=== PATIENT | male | born 1940 | race Caucasian/White ===

== ENCOUNTER 2016-10-29 14:58 | Observation (INO) | payer MEDICARE ==
[2016-10-29] MEDS ORDERED: ASPIRIN 81 MG TABLET, CHEWABLE PO ONE (15:48)
--- NOTE | 2016-10-29 15:51 | ER Document Report ---
ED Medical Screen (RME) - General Chief Complaint: Chest Pain Stated Complaint: CHEST PAIN Time Seen by Provider: 10/29/16 15:27 Mode of Arrival: Ambulatory Information source: Patient Notes: This is a 76-year-old male who presents with chest tightness. He states that the chest pain began at about 11:00 today while he was sitting at the computer at rest. He describes it as a tightness across his anterior chest and into both shoulders. He does have mild shortness of breath. No nausea or vomiting. No diaphoresis. He has taken his antihypertensive medications today but states that he has white coat syndrome and has high blood pressure every time he goes to the doctor. His current pain is 1 out of 10. I have greeted and performed a rapid initial assessment of this patient. A comprehensive ED assessment and evaluation of the patient, analysis of test results and completion of the medical decision making process will be conducted by additional ED providers. TRAVEL OUTSIDE OF THE [place] IN LAST 30 DAYS: No - Related Data Allergies/Adverse Reactions: No Known Allergies Allergy (Verified 10/29/16 15:14) Past Medical History Renal/ Medical History: Denies: Hx Peritoneal Dialysis Physical Exam - Vital signs Vitals: Temp Pulse Resp BP Pulse Ox 97.9 F 78 24 H 185/57 H 96 10/29/16 15:14 10/29/16 15:14 10/29/16 15:14 10/29/16 15:14 10/29/16 15:14 Course - Vital Signs Vital signs: Temp Pulse Resp BP Pulse Ox 97.9 F 78 24 H 185/57 H 96 10/29/16 15:14 10/29/16 15:14 10/29/16 15:14 10/29/16 15:14 10/29/16 15:14
--- NOTE | 2016-10-29 16:56 | ER Document Report ---
ED Cardiac - General Mode of Arrival: Ambulatory Information source: Patient TRAVEL OUTSIDE OF THE [place] IN LAST 30 DAYS: No - HPI Patient complains to provider of: Chest tightness Associated symptoms: Other - See above <LYDIA NICHOLS - Last Filed: 10/29/16 17:24> <MARC CHAUDHARI - Last Filed: 10/29/16 20:01> - General Chief Complaint: Chest Pain Stated Complaint: Chest Tightness Time Seen by Provider: 10/29/16 15:27 Notes: Patient is a 76 year old male, with a past medical history including triple bypass and vascular surgeries, hypertension, and diabetes, who presents to the emergency department complaining of chest tightness. Patient states the tightness started around midday and was accompanied by shortness of breath, the symptoms worsened throughout the day and was not exacerbated by activity or relieved by resting. Patient states he has had shortness of breath for the past couple of weeks but today's was different and he describes it as "shallow breathing". Patient is on Plavix and 2 baby Asa which he has taken today. Patient also complains of a headache in the back of his head. Patient denies abdominal pain, back pain, and anxiety. Patient states the chest tightness and shortness of breath are gone now. (LYDIA NICHOLS) - Related Data Allergies/Adverse Reactions: No Known Allergies Allergy (Verified 10/29/16 15:14) Past Medical History - General Information source: Patient - Social History Smoking Status: Unknown if Ever Smoked Family History: Reviewed & Not Pertinent Patient has suicidal ideation: No Patient has homicidal ideation: No - Past Medical History Cardiac Medical History: Reports: Hx Hypercholesterolemia, Hx Hypertension Endocrine Medical History: Reports: Hx Diabetes Mellitus Type 2 Past Surgical History: Reports: Hx Cardiac Catheterization <LYDIA NICHOLS - Last Filed: 10/29/16 17:24> Review of Systems - Review of Systems Constitutional: No symptoms reported EENT: No symptoms reported Cardiovascular: See HPI, Chest pain Respiratory: See HPI, Short of breath Gastrointestinal: denies: Abdominal pain Genitourinary: No symptoms reported Male Genitourinary: No symptoms reported Musculoskeletal: denies: Back pain Skin: No symptoms reported Hematologic/Lymphatic: No symptoms reported Neurological/Psychological: See HPI, Headaches -: Yes All other systems reviewed and negative <LYDIA NICHOLS - Last Filed: 10/29/16 17:24> Physical Exam - Vital signs Interpretation: Hypertensive - General General appearance: Appears well, Alert - HEENT Head: Normocephalic, Atraumatic Eyes: Normal Pupils: PERRL - Respiratory Respiratory status: No respiratory distress Chest status: Nontender Breath sounds: Normal Chest palpation: Normal - Cardiovascular Rhythm: Regular Heart sounds: Normal auscultation Murmur: No - Abdominal Inspection: Normal Distension: No distension Bowel sounds: Normal Tenderness: Nontender Organomegaly: No organomegaly - Back Back: Normal, Nontender - Extremities General upper extremity: Normal inspection, Nontender, Normal color, Normal ROM , Normal temperature General lower extremity: Normal inspection, Nontender, Normal color, Normal ROM , Normal temperature, Normal weight bearing. No: Radha's sign - Neurological Neuro grossly intact: Yes Cognition: Normal Orientation: AAOx4 [place] Coma Scale Eye Opening: Spontaneous [place] Coma Scale Verbal: Oriented [place] Coma Scale Motor: Obeys Commands Dalia Coma Scale Total: 15 Speech: Normal Motor strength normal: LUE, RUE, LLE, RLE Sensory: Normal - Psychological Associated symptoms: Normal affect, Normal mood - Skin Skin Temperature: Warm Skin Moisture: Dry Skin Color: Normal <MARC CHAUDHARI - Last Filed: 10/29/16 20:01> - Vital signs Vitals: Temp Pulse Resp BP Pulse Ox 97.9 F 78 24 H 185/57 H 96 10/29/16 15:14 10/29/16 15:14 10/29/16 15:14 10/29/16 15:14 10/29/16 15:14 Course - Laboratory Result Diagrams: 10/29/16 16:40 10/29/16 16:40 <LYDIA NICHOLS - Last Filed: 10/29/16 17:24> - Laboratory Result Diagrams: 10/29/16 16:40 10/29/16 16:40 - Diagnostic Test Radiology reviewed: Reports reviewed - EKG Interpretation by [place] EKG shows normal: Sinus rhythm Rate: Normal Rhythm: NSR <MARC CHAUDHARI - Last Filed: 10/29/16 20:01> - Re-evaluation Re-evalutation: 10/29/16 18:00 This is a 76-year-old male who comes in with chest pain and difficulty breathing. Patient states that nothing makes it better or worse. Patient has a history of coronary artery disease. Taken aspirin today. No acute findings on chest x-ray or EKG. No acute findings with blood work. Patient will be kept due to his history and symptoms today. Patient understands and agrees with this plan. Stable time of admission. Discussed with Dr. Stephenson who recommends Lovenox. (MARC CHAUDHARI) - Vital Signs Vital signs: Temp Pulse Resp BP Pulse Ox 97.9 F 78 24 H 185/57 H 98 10/29/16 15:14 10/29/16 15:14 10/29/16 15:14 10/29/16 15:14 10/29/16 17:00 - Laboratory Laboratory results interpreted by me: 10/29/16 10/29/16 16:40 16:40 WBC 13.6 H RDW 14.1 H Seg Neutrophils % 79.8 H Lymphocytes % 8.1 L Absolute Neutrophils 10.8 H BUN 28 H Creatinine 1.43 H Est GFR ( Amer) 58 L Est GFR (Non-Af Amer) 48 L Glucose 155 H Alkaline Phosphatase 194 H Discharge <LYDIA NICHOLS - Last Filed: 10/29/16 17:24> - Discharge Admitting Provider: [facility] Admitted: Telemetry <MARC CHAUDHARI - Last Filed: 10/29/16 20:01> - Discharge Clinical Impression: Chest pain Qualifiers: Chest pain type: unspecified Qualified Code(s): R07.9 - Chest pain, unspecified Condition: Stable Disposition: ADMITTED INPATIENT Scribe Attestation: 10/29/16 20:01 I personally performed the services described in the documentation, reviewed and edited the documentation which was dictated to the scribe in my presence, and it accurately records my words and actions. (MARC CHAUDHARI)
[2016-10-29 16:59] LABS: ABSOLUTE BASOPHILS # (AUTO) 0.1 10^3/uL (0.0-0.2); ABSOLUTE EOSINOPHILS # (AUTO) 0.3 10^3/uL (0.0-0.6); ABSOLUTE LYMPHOCYTES (AUTO) 1.1 10^3/uL (0.5-4.7); ABSOLUTE MONOCYTES (AUTO) 1.3 10^3/uL (0.1-1.4); ABSOLUTE NEUT (AUTO) 10.8 10^3/uL (1.7-8.2); BASOPHILS % (AUTO) 0.8 % (0-2); EOSINOPHILS % (AUTO) 1.9 % (0-6); HEMOGLOBIN 15.1 g/dL (13.5-17.0); HGB HCT DIFFERENCE -0.7; LYMPHOCYTES % (AUTO) 8.1 % (13-45); MEAN CORPUSCULAR HEMOGLOBIN 30.2 pg (27.0-33.4); MEAN CORPUSCULAR HGB CONC 32.8 g/dL (32.0-36.0); MEAN CORPUSCULAR VOLUME 92 fl (80-97); MONOCYTES % (AUTO) 9.4 % (3-13); RED BLOOD COUNT 4.98 10^6/uL (4.35-5.55); RED CELL DISTRIBUTION WIDTH 14.1 % (11.5-14.0); SEGMENTED NEUTROPHILS % (AUTO) 79.8 % (42-78); WHITE BLOOD COUNT 13.6 10^3/uL (4.0-10.5)
--- NOTE | 2016-10-29 16:59 | RADIOLOGY REPORT (SQ) ---
EXAM DESCRIPTION: CHEST SINGLE VIEW COMPLETED DATE/TIME: 10/29/2016 4:33 pm REASON FOR STUDY: chest pain COMPARISON: None. EXAM PARAMETERS: NUMBER OF VIEWS: One view. TECHNIQUE: Single frontal radiographic view of the chest acquired. RADIATION DOSE: NA LIMITATIONS: None. FINDINGS: LUNGS AND PLEURA: No opacities, masses or pneumothorax. No pleural effusion. MEDIASTINUM AND HILAR STRUCTURES: No masses. Contour normal. HEART AND VASCULAR STRUCTURES: Mild cardiomegaly. The central vasculature appears normal. BONES: No acute findings. HARDWARE: Median sternotomy wires and mediastinal surgical clips. OTHER: No other significant finding. IMPRESSION: NO ACUTE RADIOGRAPHIC FINDING IN THE CHEST. TECHNICAL DOCUMENTATION: JOB ID: [id number]
[2016-10-29 17:05] LABS: PROTHROMBIN TIME 12.6 SEC (11.4-15.4)
[2016-10-29 17:16] LABS: ALANINE AMINOTRANSFERASE 47 U/L (21-72); ALBUMIN 4.1 g/dL (3.5-5.0); ALKALINE PHOSPHATASE 194 U/L (38-126); ANION GAP 14 (5-19); ASPARTATE AMINO TRANSFERASE 39 U/L (17-59); BILIRUBIN,DIRECT 0.4 mg/dL (0.0-0.4); BILIRUBIN,TOTAL 0.6 mg/dL (0.2-1.3); BLOOD UREA NITROGEN 28 mg/dL (7-20); CALCIUM 9.3 mg/dL (8.4-10.2); CARBON DIOXIDE 23 mmol/L (22-30); CHLORIDE 104 mmol/L (98-107); CREATINE KINASE 156 U/L (55-170); CREATININE RESULT 1.43 mg/dL (0.52-1.25); GLUCOSE 155 mg/dL (75-110); POTASSIUM 4.4 mmol/L (3.6-5.0); SODIUM 140.8 mmol/L (137-145); TOTAL PROTEIN 7.1 g/dL (6.3-8.2)
[2016-10-29 17:28] LABS: CREATINE KINASE MB 3.28 ng/mL (<4.55); TROPONIN I 0.022 ng/mL
[2016-10-29] MEDS ORDERED: ENOXAPARIN SODIUM INJ 150 MG/1 ML DISP.SYRIN SUBCUT SCH (18:00)
[2016-10-29] MEDS: ENOXAPARIN SODIUM INJ 150 MG/1 ML DISP.SYRIN SUBCUT SCH (18:02)
[2016-10-29] MEDS ORDERED: NITROGLYCERIN 0.4 MG/TAB 25 TAB/BOTTLE SL PRN (20:03)
[2016-10-29] MEDS ORDERED: DEXTROSE 40% GEL 15 GM TUBE PO PRN ×2 (20:09)
[2016-10-29] MEDS ORDERED: DEXTROSE 50%-WATER 25 GM/50 ML DISP.SYRIN IV PRN ×2 (20:09)
[2016-10-29] MEDS ORDERED: GLUCAGON,HUMAN RECOMB 1 MG INJ IM PRN (20:09)
[2016-10-29] MEDS ORDERED: METOPROLOL SUCCINATE 50 MG TAB.SR.24H PO SCH (20:15)
[2016-10-29] MEDS: ATORVASTATIN CALCIUM 40 MG TABLET PO SCH (21:24)
[2016-10-29] MEDS: FAMOTIDINE 20 MG TABLET PO SCH (21:24)
[2016-10-30] MEDS ORDERED: ENOXAPARIN SODIUM INJ 150 MG/1 ML DISP.SYRIN SUBCUT ONE (06:18)
[2016-10-30] MEDS: ENOXAPARIN SODIUM INJ 150 MG/1 ML DISP.SYRIN SUBCUT SCH ×2 (06:22→17:34)
--- NOTE | 2016-10-30 07:44 | PDOC H&P ---
History of Present Illness Admission Date/PCP: 10/29/16 20:03 ZAHRAA WARREN MD Patient complains of: chest pain History of Present Illness: SHANTELLE CURTIS is a 76 year old male diabetic post 2007 cabg with new upper chest pressure from 10am to 2pm. It was pleuritic and radiated to shoulders. It was no associated with effort or meals. Past Medical History Cardiac Medical History: Reports: Coronary Artery Disease, Hyperlipidema, Hypertension, Peripheral Vascular Disease Denies: Congestive Heart Failure Pulmonary Medical History: Denies: Asthma, Bronchitis, Chronic Obstructive Pulmonary Disease (COPD), Pneumonia, Tuberculosis EENT Medical History: Reports: Eyes - retinopathy macular edema Neurological Medical History: Reports: None Endocrine Medical History: Reports: Diabetes Mellitus Type 2 Renal/ Medical History: Reports: Chronic Kidney Disease Malignancy Medical History: Reports: None GI Medical History: Reports: Gastroesophageal Reflux Disease Denies: Cirrhosis Musculoskeltal Medical History: Reports: Arthritis Skin Medical History: Reports: None Psychiatric Medical History: Denies: Bipolar Disorder, Depression Traumatic Medical History: Reports: None Hematology: Reports: Anemia - 2014 iron low. Scope negative Denies: Bleeding Tendencies Infectious Medical History: Reports: None Past Surgical History Past Surgical History: Reports: Cardiac Catheterization, Cholecystectomy, Coronary Artery Bypass Graft, Other - 2014 graft L popliteal Social History Information Source: Dr. Shaw Smoking Status: Former Smoker Number of Years Smokin Last Time Smoked: 1996 Frequency of Alcohol Use: None Hx Recreational Drug Use: No Hx Prescription Drug Abuse: No - Advance Directive Resuscitation Status: Full Code Family History Family History: CAD, DM Parental Family History Reviewed: Yes Children Family History Reviewed: Yes Sibling(s) Family History Reviewed.: Yes Medication/Allergy Home Medications: Amlodipine Besylate [Norvasc 10 mg Tablet] 10 mg PO DAILY 10/30/16 Aspirin [Adult Low Dose Aspirin EC] 81 mg PO DAILY 10/30/16 Atorvastatin Calcium [Lipitor 40 mg Tablet] 40 mg PO QHS 10/30/16 Clopidogrel Bisulfate [Clopidogrel] 75 mg PO DAILY 10/30/16 Furosemide [Lasix] 40 mg PO DAILY 10/30/16 Insulin NPL/Insulin Lispro [Humalog Mix 75-25 Vial] 100 unit SQ BID 10/30/16 Labetalol HCl [Trandate] 300 mg PO BID 10/30/16 Lisinopril [Zestril] 20 mg PO DAILY 10/30/16 Ranitidine HCl [Zantac 150 mg Tablet] 150 mg PO BID 10/30/16 Allergies/Adverse Reactions: No Known Allergies Allergy (Verified 10/29/16 15:14) Review of Systems Constitutional: PRESENT: headache(s). ABSENT: fever(s), weight loss Nose, Mouth, and Throat: ABSENT: sore throat Cardiovascular: PRESENT: chest pain, dyspnea on exertion. ABSENT: orthropnea Respiratory: ABSENT: cough Gastrointestinal: ABSENT: abdominal pain, constipation, diarrhea, hematochezia, melena, vomiting Genitourinary: ABSENT: difficulty urinating, dysuria, hematuria Physical Exam Vital Signs: Temp Pulse Resp BP Pulse Ox 98.2 F 70 17 162/56 H 99 10/30/16 03:52 10/30/16 03:52 10/30/16 03:52 10/30/16 03:52 10/30/16 03:52 Intake & Output 10/28/16 10/29/16 10/30/16 07:59 07:59 07:59 Weight 318 lb 9.087 oz General appearance: PRESENT: no acute distress Neck exam: ABSENT: lymphadenopathy, tenderness, thyromegaly, tracheal deviation Respiratory exam: PRESENT: clear to auscultation monserrat Cardiovascular exam: ABSENT: diastolic murmur, irregular rhythm, systolic murmur GI/Abdominal exam: ABSENT: mass, organolmegaly, tenderness Extremities exam: PRESENT: pedal edema - trace Neurological exam: PRESENT: oriented to situation Psychiatric exam: PRESENT: appropriate affect Results Laboratory Results: 10/29/16 10/30/16 20:20 02:06 Troponin I 0.024 0.029 Abnormal - 24 hr 10/29/16 10/29/16 10/29/16 16:40 16:40 21:23 WBC 13.6 H RDW 14.1 H Seg Neutrophils % 79.8 H Lymphocytes % 8.1 L Absolute Neutrophils 10.8 H BUN 28 H Creatinine 1.43 H Est GFR ( Amer) 58 L Est GFR (Non-Af Amer) 48 L Glucose 155 H POC Glucose 119 H Alkaline Phosphatase 194 H 10/30/16 06:26 WBC RDW Seg Neutrophils % Lymphocytes % Absolute Neutrophils BUN Creatinine Est GFR ( Amer) Est GFR (Non-Af Amer) Glucose POC Glucose 138 H Alkaline Phosphatase Impressions: Chest X-Ray 10/29/16 15:48 IMPRESSION: NO ACUTE RADIOGRAPHIC FINDING IN THE CHEST. Assessment & Plan - Diagnosis (1) Pleuritic pain Is this a current diagnosis for this admission?: YesPlan: troponin & ekg pending. Continue lovenox. May need outpatient nuc since last one was in 2014. (2) Type 2 diabetes mellitus with diabetic nephropathy Qualifiers: Diabetes mellitus fci insulin use: with fci use Qualified Code(s): E11.21 - Type 2 diabetes mellitus with diabetic nephropathy; Z79.4 - terminal clerk (current) use of insulin Is this a current diagnosis for this admission?: YesPlan: resume mixed insulin
[2016-10-30] MEDS: ASPIRIN 81 MG TABLET, CHEWABLE PO SCH (09:38)
[2016-10-30] MEDS: FAMOTIDINE 20 MG TABLET PO SCH ×2 (09:38→22:00)
[2016-10-30] MEDS: AMLODIPINE BESYLATE 10 MG TABLET PO SCH (09:38)
[2016-10-30] MEDS: FUROSEMIDE 40 MG TABLET PO SCH (09:38)
[2016-10-30] MEDS: LISINOPRIL 10 MG TABLET PO SCH (09:38)
[2016-10-30] MEDS: CLOPIDOGREL BISULFATE 75 MG TABLET PO SCH (09:38)
[2016-10-30] MEDS: LABETALOL HCL 200 MG TABLET PO SCH ×2 (09:39→22:00)
[2016-10-30] MEDS ORDERED: (PENDING PHARMACY ID) (Lisinopril [Zestril] 20 MG) PO SCH (10:00)
[2016-10-30] MEDS ORDERED: (PENDING PHARMACY ID) (Labetalol Hcl [Trandate] 300 MG) PO SCH (10:00)
[2016-10-30] MEDS: INSULIN REG, HUMAN 100 UNIT/ML 3 ML VIAL (PYX) SUBCUT PRN ×2 (18:06→21:59)
[2016-10-30] MEDS: ATORVASTATIN CALCIUM 40 MG TABLET PO SCH (22:00)
[2016-10-31 05:26] LABS: HEMATOCRIT 40.9 % (37.9-51.0); HEMOGLOBIN 13.6 g/dL (13.5-17.0); HGB HCT DIFFERENCE -0.1; MEAN CORPUSCULAR HEMOGLOBIN 30.6 pg (27.0-33.4); MEAN CORPUSCULAR HGB CONC 33.3 g/dL (32.0-36.0); MEAN CORPUSCULAR VOLUME 92 fl (80-97); RED BLOOD COUNT 4.45 10^6/uL (4.35-5.55); WHITE BLOOD COUNT 7.1 10^3/uL (4.0-10.5)
[2016-10-31] MEDS: ENOXAPARIN SODIUM INJ 150 MG/1 ML DISP.SYRIN SUBCUT SCH (05:37)
--- NOTE | 2016-10-31 07:53 | PDOC DISCHARGE SUMMARY ---
General - Admit/Disc Date/PCP Admission Date/Primary Care Provider: 10/29/16 20:03 ZAHRAA WARREN MD Discharge Date: 10/31/16 - Discharge Diagnosis (1) Pleuritic pain Is this a current diagnosis for this admission?: Yes (2) Type 2 diabetes mellitus with diabetic nephropathy Is this a current diagnosis for this admission?: Yes - Additional Information Resuscitation Status: Full Code Discharge Diet: Diabetic Discharge Activity: Activity As Tolerated Home Medications: Amlodipine Besylate [Norvasc 10 mg Tablet] 10 mg PO QHS 10/30/16 Ascorbic Acid [Vitamin C 500 mg Tablet] 500 mg PO DAILY 10/30/16 Aspirin [Adult Low Dose Aspirin EC] 81 mg PO DAILY 10/30/16 Atorvastatin Calcium [Lipitor 40 mg Tablet] 40 mg PO QHS 10/30/16 Clopidogrel Bisulfate [Clopidogrel] 75 mg PO QHS 10/30/16 Fluocinolone/Shower Cap [Fluocinolone 0.01% Scalp Oil] 1 applic TP PRN PRN 10/30 Fluticasone Propionate [Flonase Nasal [place] 50 Mcg/[place] 16 gm] 2 sprays NAREB DAILY 10/30/16 Furosemide [Lasix] 40 mg PO DAILY 10/30/16 Insulin NPH Hum/Reg Insulin Hm [Novolin 70-30 100 Unit/ml Vial] 100 unit SQ BIDACBS 10/30/16 Labetalol HCl [Trandate] 300 mg PO Q12 10/30/16 Lisinopril [Zestril] 20 mg PO DAILY 10/30/16 Ranitidine HCl [Zantac 150 mg Tablet] 150 mg PO DAILY 10/30/16 Hydralazine HCl [Apresoline 50 mg Tablet] 50 mg PO Q12 #60 tablet 10/31/16 Nitroglycerin [Nitrostat 0.4 mg (1/150 Gr) Tabs 25/Bottle] 1 tab SL Q5MP PRN # 30 bottle 10/31/16 History of Present Illness Patient complains of: chest pain History of Present Illness: SHANTELLE CURTIS is a 76 year old male diabetic post 2007 cabg with new upper chest pressure from 10am to 2pm. It was pleuritic and radiated to shoulders. It was no associated with effort or meals. Hospital Course Hospital Course: 4 troponins were normal. Ekgs showed Rbbb & Q waves everwhere. No pain since ER. Hydralazine was added for bp. Physical Exam Vital Signs: Temp Pulse Resp BP Pulse Ox 97.8 F 58 L 18 146/53 H 99 10/31/16 03:44 10/31/16 07:00 10/31/16 03:44 10/31/16 03:44 10/31/16 03:44 Intake & Output 10/29/16 10/30/16 10/31/16 07:59 07:59 07:59 Intake Total 300 1490 Output Total 2 Balance 298 1490 Weight 318 lb 9.087 oz 319 lb 0.142 oz General appearance: PRESENT: no acute distress Cardiovascular exam: ABSENT: diastolic murmur, irregular rhythm, systolic murmur GI/Abdominal exam: ABSENT: mass, organolmegaly, tenderness Extremities exam: ABSENT: pedal edema Neurological exam: PRESENT: oriented to situation Psychiatric exam: PRESENT: appropriate affect Results Laboratory Results: 10/31/16 04:49 10/31/16 04:49 WBC 7.1 RBC 4.45 Hgb 13.6 Hct 40.9 MCV 92 MCH 30.6 MCHC 33.3 RDW 14.0 Plt Count 155 10/29/16 10/30/16 10/30/16 20:20 02:06 08:09 Troponin I 0.024 0.029 0.032 Impressions: Chest X-Ray 10/29/16 15:48 IMPRESSION: NO ACUTE RADIOGRAPHIC FINDING IN THE CHEST. Qualifiers PATEINT BEING DISCHARGED WITH ANY OF THE FOLLOWING DIAGNOSIS?: No Plan Discharge Plan: home. OV 1w Patti. 2w me
[2016-10-31 09:20] VITALS: BP 145/87
[2016-10-31] MEDS: FAMOTIDINE 20 MG TABLET PO SCH (09:35)
[2016-10-31] MEDS: CLOPIDOGREL BISULFATE 75 MG TABLET PO SCH (09:35)
[2016-10-31] MEDS: FUROSEMIDE 40 MG TABLET PO SCH (09:35)
[2016-10-31] MEDS: LABETALOL HCL 200 MG TABLET PO SCH (09:35)
[2016-10-31] MEDS: AMLODIPINE BESYLATE 10 MG TABLET PO SCH (09:35)
[2016-10-31] MEDS: LISINOPRIL 10 MG TABLET PO SCH (09:35)
[2016-10-31] MEDS: ASPIRIN 81 MG TABLET, CHEWABLE PO SCH (09:35)
--- NOTE | 2016-10-31 09:51 | EKG REPORT ---
SEVERITY:- ABNORMAL ECG - SINUS RHYTHM ATRIAL PREMATURE COMPLEX PROBABLE LEFT ATRIAL ABNORMALITY RIGHT BUNDLE BRANCH BLOCK : Confirmed by: Patricia Berkowitz 31-Oct-2016 09:50:29
--- NOTE | 2016-10-31 09:51 | EKG REPORT ---
SEVERITY:- ABNORMAL ECG - SINUS RHYTHM PROBABLE LEFT ATRIAL ABNORMALITY RIGHT BUNDLE BRANCH BLOCK INFERIOR INFARCT, AGE INDETERMINATE LATERAL INFARCT, AGE INDETERMINATE ANTERIOR INFARCT, OLD : Confirmed by: Patricia Berkowitz 31-Oct-2016 09:50:41
[2016-10-31] MEDS ORDERED: HYDRALAZINE HCL 50 MG TABLET PO SCH (10:00)
== END 2016-10-31 10:35 | disposition home or self-care (01) ==
LOC: ER 14:58 → UNDOADMIN 19:13 → EH 19:13 → INTOOBSV 20:03 → EH 20:03 → 4N 22:57 → EH 22:57
PROVIDERS: ADMIT Family Medicine; ATTEND Family Medicine
DX: R07.81 Pleurodynia (principal); E11.21 Type 2 diabetes mellitus with diabetic nephropathy; I12.9 Hypertensive chronic kidney disease with stage 1 through stage 4 chronic kidney disease, or unspecified chronic kidney disease; E11.22 Type 2 diabetes mellitus with diabetic chronic kidney disease; N18.9 Chronic kidney disease, unspecified; R51 Headache; I45.10 Unspecified right bundle-branch block; I25.10 Atherosclerotic heart disease of native coronary artery without angina pectoris; K21.9 Gastro-esophageal reflux disease without esophagitis; I73.9 Peripheral vascular disease, unspecified; R60.9 Edema, unspecified; Z79.82 Long term (current) use of aspirin; Z79.4 Long term (current) use of insulin; Z79.899 Other long term (current) drug therapy; Z79.02 Long term (current) use of antithrombotics/antiplatelets; Z95.1 Presence of aortocoronary bypass graft; Z90.49 Acquired absence of other specified parts of digestive tract; Z95.828 Presence of other vascular implants and grafts; Z82.49 Family history of ischemic heart disease and other diseases of the circulatory system; Z87.891 Personal history of nicotine dependence
CPT/HCPCS: 93005 ×2; 99285; 96372; 36415 ×3; 82553; 82962 ×3; 82550; 85025; 85027; 85610; 80053; 84484 ×2; 71010; 93010 ×2; G0378 ×4; A9270 ×19; J3490 ×6; J1815

== ENCOUNTER 2017-12-25 10:36 | Inpatient (IN) | payer MEDICARE ==
[2017-12-25] MEDS ORDERED: ASPIRIN 81 MG TABLET, CHEWABLE PO ONE (10:50)
[2017-12-25 11:18] LABS: ABSOLUTE BASOPHILS # (AUTO) 0.1 10^3/uL (0.0-0.2); ABSOLUTE EOSINOPHILS # (AUTO) 0.3 10^3/uL (0.0-0.6); ABSOLUTE LYMPHOCYTES (AUTO) 0.9 10^3/uL (0.5-4.7); ABSOLUTE MONOCYTES (AUTO) 0.9 10^3/uL (0.1-1.4); BASOPHILS % (AUTO) 1.3 % (0-2); HEMATOCRIT 39.5 % (37.9-51.0); HEMOGLOBIN 13.2 g/dL (13.5-17.0); LYMPHOCYTES % (AUTO) 10.3 % (13-45); MEAN CORPUSCULAR HEMOGLOBIN 30.6 pg (27.0-33.4); MEAN CORPUSCULAR HGB CONC 33.5 g/dL (32.0-36.0); MEAN CORPUSCULAR VOLUME 91 fl (80-97); MONOCYTES % (AUTO) 9.6 % (3-13); PLATELET COUNT 177 10^3/uL (150-450); RED BLOOD COUNT 4.32 10^6/uL (4.35-5.55); RED CELL DISTRIBUTION WIDTH 14.5 % (11.5-14.0); SEGMENTED NEUTROPHILS % (AUTO) 75.8 % (42-78); TOTAL CELLS COUNTED % (AUTO) 100 %; WHITE BLOOD COUNT 9.2 10^3/uL (4.0-10.5)
--- NOTE | 2017-12-25 11:23 | ER Document Report ---
ED Medical Screen (RME) - General Chief Complaint: Shortness Of Breath Stated Complaint: SHORTNESS OF BREATH Time Seen by Provider: 12/25/17 11:22 Notes: 77 years old male with a history of coronary artery bypass surgery in 2012, with a history of CHF, presents today with gradual weight gain of about 20 pounds within the last few weeks, with shortness of breath on minimal exertion. Last night had orthopnea could not lay down flat has to sleep in the couch. Therefore present to the ED. He is on Lasix. Right lower lobe inspiratory rales TRAVEL OUTSIDE OF THE [place] IN LAST 30 DAYS: No - Related Data Allergies/Adverse Reactions: No Known Allergies Allergy (Verified 12/25/17 10:37) Past Medical History - Social History Chew tobacco use (# tins/day): No Frequency of alcohol use: None Drug Abuse: None - Past Medical History Cardiac Medical History: Reports: Hx Coronary Artery Disease, Hx Hypercholesterolemia, Hx Hypertension, Hx Peripheral Vascular Disease Denies: Hx Congestive Heart Failure, Hx Heart Attack Pulmonary Medical History: Denies: Hx Asthma, Hx Bronchitis, Hx COPD, Hx Pneumonia, Hx Tuberculosis Neurological Medical History: Denies: Hx Seizures Endocrine Medical History: Reports: Hx Diabetes Mellitus Type 2 Renal/ Medical History: Reports: Hx Kidney Stones. Denies: Hx Benign Prostatic Hyperplasia, Hx End Stage Renal Disease, Hx Peritoneal Dialysis GI Medical History: Reports: Hx Gastroesophageal Reflux Disease. Denies: Hx Cirrhosis, Hx Ulcer Musculoskeltal Medical History: Reports Hx Arthritis, Denies Hx Multiple Sclerosis Psychiatric Medical History: Denies: Hx Bipolar Disorder, Hx Depression, Hx Schizophrenia Past Surgical History: Reports: Hx Cardiac Catheterization, Hx Cholecystectomy, Hx Coronary Artery Bypass Graft, Other - 2015 graft L popliteal Physical Exam - Vital signs Vitals: Temp Pulse Resp BP Pulse Ox 97.8 F 73 22 H 155/46 H 96 12/25/17 10:41 12/25/17 10:41 12/25/17 10:41 12/25/17 10:41 12/25/17 10:41 Course - Vital Signs Vital signs: Temp Pulse Resp BP Pulse Ox 97.8 F 73 22 H 155/46 H 96 12/25/17 10:41 12/25/17 10:41 12/25/17 10:41 12/25/17 10:41 12/25/17 10:41 - Laboratory Result Diagrams: 12/25/17 11:10 12/25/17 11:10 Doctor's Discharge - Discharge Referrals: ZAHRAA WARREN MD [Primary Care Provider] - Follow up as needed
[2017-12-25 12:04] LABS: ALANINE AMINOTRANSFERASE 33 U/L (21-72); ALBUMIN 3.3 g/dL (3.5-5.0); ALKALINE PHOSPHATASE 139 U/L (38-126); ANION GAP 11 (5-19); ASPARTATE AMINO TRANSFERASE 20 U/L (17-59); BILIRUBIN,DIRECT 0.3 mg/dL (0.0-0.4); BILIRUBIN,TOTAL 0.6 mg/dL (0.2-1.3); BLOOD UREA NITROGEN 24 mg/dL (7-20); CALCIUM 8.9 mg/dL (8.4-10.2); CARBON DIOXIDE 24 mmol/L (22-30); CHLORIDE 111 mmol/L (98-107); CREATINE KINASE 93 U/L (55-170); GLUCOSE 57 mg/dL (75-110); POTASSIUM 4.3 mmol/L (3.6-5.0); SODIUM 145.6 mmol/L (137-145)
[2017-12-25 12:15] LABS: CREATINE KINASE MB 2.48 ng/mL (<4.55); TROPONIN I 0.033 ng/mL
--- NOTE | 2017-12-25 12:21 | RADIOLOGY REPORT (SQ) ---
EXAM DESCRIPTION: CHEST SINGLE VIEW COMPLETED DATE/TIME: 12/25/2017 12:06 pm REASON FOR STUDY: shortness of breath COMPARISON: October 2016 EXAM PARAMETERS: NUMBER OF VIEWS: One view. TECHNIQUE: Single frontal radiographic view of the chest acquired. RADIATION DOSE: NA LIMITATIONS: None. FINDINGS: LUNGS AND PLEURA: Patchy bilateral airspace densities are identified right greater than le ft which could represent pulmonary edema or patchy pneumonic infiltrates. There is some minimal blun ting of the right costophrenic angle which I cannot exclude is a small right pleural effusion MEDIASTINUM AND HILAR STRUCTURES: No masses. Contour normal. HEART AND VASCULAR STRUCTURES: Cardiac silhouette remains enlarged. There is mild pulmonary vascular congestion BONES: No acute findings. HARDWARE: Patient is status post median sternotomy. OTHER: No other significant finding. IMPRESSION: Patchy bilateral airspace densities as noted above which could represent pulmonary edema or pneumonic infiltrates. I cannot exclude a tiny right pleural effusion. Other findings as noted above TECHNICAL DOCUMENTATION: JOB ID: [id number] [employer]- All Rights Reserved Reading location - IP/workstation name: [email or web address]
--- NOTE | 2017-12-25 14:28 | ER Document Report ---
ED General - General Chief Complaint: Shortness Of Breath Stated Complaint: SHORTNESS OF BREATH Time Seen by Provider: 12/25/17 11:22 Notes: Chief complaint: Shortness of breath History of complain:( obtained from----patient)77 years old male with a history of coronary artery bypass surgery in 2012, with a history of CHF, presents today with gradual weight gain of about 20 pounds within the last few weeks, with shortness of breath on minimal exertion. Last night had orthopnea could not lay down flat has to sleep in the couch. Therefore present to the ED. He is on Lasix. Onset: Gradual last 1 week Duration: 1 week Severity: Moderate [place] dull Context: As above Exacerbating factor and relieving factors: REVIEW OF SYSTEMS: CONSTITUTIONAL : Denies fever, chills, or sweats. Denies recent illness. EENT: Denies eye, ear, throat, or mouth pain or symptoms. Denies nasal or sinus congestion or discharge. Denies throat, tongue, or mouth swelling or difficulty swallowing. CARDIOVASCULAR: Denies chest pain. Denies palpitations or racing or irregular heart beat. Denies ankle edema. RESPIRATORY: Denies cough, cold, or chest congestion. Denies shortness of breath, difficulty breathing, or wheezing. GASTROINTESTINAL: Denies distention. Denies nausea, vomiting, or diarrhea. Denies blood in vomitus, stools, or per rectum. Denies black, tarry stools. Denies constipation. GENITOURINARY: Denies difficulty urinating, painful urination, burning, frequency, blood in urine, or discharge. FEMALE GENITOURINARY: Denies vaginal bleeding, heavy or abnormal periods, irregular periods. Denies vaginal discharge or odor. MUSCULOSKELETAL: Denies back or neck pain or stiffness. Denies joint pain or swelling. SKIN: Denies rash, lesions or sores. HEMATOLOGIC : Denies easy bruising or bleeding. LYMPHATIC: Denies swollen, enlarged glands. NEUROLOGICAL: Denies confusion or altered mental status. Denies passing out or loss of consciousness. Denies dizziness or lightheadedness. Denies headache. Denies weakness or paralysis or loss of use of either side. Denies problems with gait or speech. Denies sensory loss, numbness, or tingling. Denies seizures. PSYCHIATRIC: Denies anxiety or stress. Denies depression, suicidal ideation, or homicidal ideation. ALL OTHER SYSTEMS REVIEWED AND NEGATIVE. PHYSICAL EXAMINATION: GENERAL: Well-appearing, well-nourished and in mild acute distress. HEAD: Atraumatic, normocephalic. EYES: Pupils equal round and reactive to light, extraocular movements intact, conjunctiva are normal. ENT: Nares patent, oropharynx clear without exudates. Moist mucous membranes. NECK: Normal range of motion, supple without lymphadenopathy LUNGS: Breath sounds clear to auscultation bilaterally and equal. Inspiratory rales over the right side of the lung field lower lung field or rhonchi. HEART: Regular rate and rhythm without murmurs ABDOMEN: Soft, nontender, nondistended abdomen. No guarding, no rebound. No masses appreciated. Examination of genitals-deferred Musculoskeletal: Normal range of motion, no pitting or edema. No cyanosis. NEUROLOGICAL: Cranial nerves grossly intact. Normal speech, normal gait. Normal sensory, motor exams PSYCH: Normal mood, normal affect. SKIN: Warm, Dry, normal turgor, no rashes or lesions noted. Dictation was performed using [employer] voice recognition software TRAVEL OUTSIDE OF THE [place] IN LAST 30 DAYS: No - HPI Notes: Dictated - Related Data Allergies/Adverse Reactions: No Known Allergies Allergy (Verified 12/25/17 10:37) Past Medical History - Social History Smoking Status: Former Smoker Chew tobacco use (# tins/day): No Frequency of alcohol use: None Drug Abuse: None Family History: CAD, DM Patient has suicidal ideation: No Patient has homicidal ideation: No - Past Medical History Cardiac Medical History: Reports: Hx Coronary Artery Disease, Hx Hypercholesterolemia, Hx Hypertension, Hx Peripheral Vascular Disease Denies: Hx Congestive Heart Failure, Hx Heart Attack Pulmonary Medical History: Denies: Hx Asthma, Hx Bronchitis, Hx COPD, Hx Pneumonia, Hx Tuberculosis Neurological Medical History: Denies: Hx Seizures Endocrine Medical History: Reports: Hx Diabetes Mellitus Type 2 Renal/ Medical History: Reports: Hx Kidney Stones. Denies: Hx Benign Prostatic Hyperplasia, Hx End Stage Renal Disease, Hx Peritoneal Dialysis GI Medical History: Reports: Hx Gastroesophageal Reflux Disease. Denies: Hx Cirrhosis, Hx Ulcer Musculoskeletal Medical History: Reports Hx Arthritis, Denies Hx Multiple Sclerosis Psychiatric Medical History: Denies: Hx Bipolar Disorder, Hx Depression, Hx Schizophrenia Past Surgical History: Reports: Hx Cardiac Catheterization, Hx Cholecystectomy, Hx Coronary Artery Bypass Graft, Other - 2015 graft L popliteal - Immunizations Hx Pneumococcal Vaccination: 05/22/16 Review of Systems - Review of Systems Notes: Dictated Physical Exam - Vital signs Vitals: Temp Pulse Resp BP Pulse Ox 97.8 F 73 22 H 155/46 H 96 12/25/17 10:41 12/25/17 10:41 12/25/17 10:41 12/25/17 10:41 12/25/17 10:41 - Notes Notes: Dictated Course - Vital Signs Vital signs: Temp Pulse Resp BP Pulse Ox 97.8 F 73 22 H 155/46 H 96 12/25/17 10:41 12/25/17 10:41 12/25/17 10:41 12/25/17 10:41 12/25/17 10:41 - Laboratory Result Diagrams: 12/25/17 11:10 12/25/17 11:10 Laboratory results interpreted by me: 12/25/17 12/25/17 12/25/17 11:10 11:10 11:10 RBC 4.32 L Hgb 13.2 L RDW 14.5 H Lymphocytes % 10.3 L Sodium 145.6 H Chloride 111 H BUN 24 H Creatinine 1.35 H Est GFR (Non-Af Amer) 51 L Glucose 57 L Alkaline Phosphatase 139 H NT-Pro-B Natriuret Pep 2590 H Total Protein 6.0 L Albumin 3.3 L - Diagnostic Test Radiology reviewed: Reports reviewed - CHF Discharge - Discharge Clinical Impression: Congestive heart failure Qualifiers: Heart failure type: combined systolic and diastolic Heart failure chronicity: acute Qualified Code(s): I50.41 - Acute combined systolic (congestive) and diastolic (congestive) heart failure Condition: Fair Disposition: ADMITTED INPATIENT Admitting Provider: Hospitalist Unit Admitted: Telemetry Referrals: ZAHRAA WARREN MD [Primary Care Provider] - Follow up as needed
[2017-12-25] MEDS ORDERED: DEXTROSE 50%-WATER 25 GM/50 ML DISP.SYRIN IV PRN ×2 (16:50)
[2017-12-25] MEDS ORDERED: GLUCAGON,HUMAN RECOMB 1 MG INJ IM PRN (16:50)
[2017-12-25] MEDS ORDERED: DEXTROSE 40% GEL 15 GM TUBE PO PRN ×2 (16:50)
--- NOTE | 2017-12-25 18:22 | PDOC H&P ---
History of Present Illness Admission Date/PCP: 12/25/17 15:07 ZAHRAA WARREN MD Patient complains of: increased uribe pnd History of Present Illness: SHANTELLE CURTIS is a 77 year old male with 2007 cabg chronic diastolic failure 1w progressive uirbe & pnd. Past Medical History Cardiac Medical History: Reports: Congestive Heart Failure, Coronary Artery Disease, Hyperlipidema, Hypertension, Peripheral Vascular Disease Denies: Myocardial Infarction Pulmonary Medical History: Reports: None Denies: Asthma, Bronchitis, Chronic Obstructive Pulmonary Disease (COPD), Pneumonia, Tuberculosis EENT Medical History: Reports: Nose - rhinitis Neurological Medical History: Reports: None Denies: Seizures Endocrine Medical History: Reports: Diabetes Mellitus Type 2 Renal/ Medical History: Reports: Chronic Kidney Disease Malignancy Medical History: Reports: None GI Medical History: Reports: Gastroesophageal Reflux Disease Denies: Cirrhosis Musculoskeltal Medical History: Reports: Arthritis Skin Medical History: Reports: None Psychiatric Medical History: Reports: None Denies: Bipolar Disorder, Depression Traumatic Medical History: Reports: None Hematology: Reports: Anemia - 2014 iron low. Scope negative Denies: Bleeding Tendencies Infectious Medical History: Reports: None Past Surgical History Past Surgical History: Reports: Cardiac Catheterization, Cholecystectomy, Coronary Artery Bypass Graft - 2006, Other - 2014 graft L popliteal Social History Information Source: Dr. Shaw Smoking Status: Former Smoker Number of Years Smokin Last Time Smoked: 1996 Frequency of Alcohol Use: None Hx Recreational Drug Use: No Drugs: None Hx Prescription Drug Abuse: No - Advance Directive Resuscitation Status: Full Code Family History Family History: CAD, DM, Hypertension Parental Family History Reviewed: Yes Children Family History Reviewed: Yes Sibling(s) Family History Reviewed.: Yes Medication/Allergy Home Medications: Amlodipine Besylate [Norvasc 10 mg Tablet] 10 mg PO QPM 12/25/17 Aspirin [Adult Low Dose Aspirin EC] 81 mg PO QAM 12/25/17 Atorvastatin Calcium [Lipitor 40 mg Tablet] 40 mg PO QAM 12/25/17 Cetirizine HCl [Zyrtec 10 mg Tablet] 10 mg PO QAM 12/25/17 Cholecalciferol (Vitamin D3) [Vitamin D3 1000 Unit Tablet] 1,000 unit PO QPM 11/06 Clopidogrel Bisulfate [Plavix 75 mg Tablet] 75 mg PO QPM 12/25/17 Duloxetine HCl [Cymbalta] 30 mg PO QAM 12/25/17 Famotidine [Pepcid 20 mg Tablet] 20 mg PO QPM 12/25/17 Fluticasone Propionate [Flonase Nasal [place] 50 Mcg/[place] 16 gm] 2 spray NASL QA 12/25/17 Furosemide [Lasix 40 mg Tablet] 40 mg PO QAM 12/25/17 Hum Insulin NPH/Reg Insulin Hm [Novolin 70-30 100 Unit/ml Vial] 100 units SQ BID 12/25/17 Hydralazine HCl [Apresoline 25 mg Tablet] 25 mg PO Q12 12/25/17 Labetalol HCl [Trandate] 300 mg PO BID 12/25/17 Lisinopril [Zestril] 20 mg PO QAM 12/25/17 Ranitidine HCl [Zantac] 300 mg PO QAM 12/25/17 Allergies/Adverse Reactions: No Known Allergies Allergy (Verified 12/25/17 10:37) Review of Systems Constitutional: PRESENT: weight gain - 20#. ABSENT: fever(s), headache(s) Nose, Mouth, and Throat: ABSENT: sore throat Cardiovascular: PRESENT: dyspnea on exertion, edema, orthropnea. ABSENT: chest pain Respiratory: PRESENT: cough, dyspnea. ABSENT: sputum Gastrointestinal: ABSENT: abdominal pain, constipation, diarrhea, hematochezia, vomiting Genitourinary: ABSENT: dysuria, hematuria Integumentary: ABSENT: rash Physical Exam Vital Signs: Temp Pulse Resp BP Pulse Ox 97.8 F 73 22 H 155/46 H 97 12/25/17 10:41 12/25/17 10:41 12/25/17 10:41 12/25/17 10:41 12/25/17 15:55 Eye exam: ABSENT: conjunctival injection, scleral icterus Mouth exam: PRESENT: moist Neck exam: ABSENT: lymphadenopathy, tenderness, thyromegaly, tracheal deviation Respiratory exam: PRESENT: wheezes - mild Cardiovascular exam: PRESENT: +S1, +S2. ABSENT: diastolic murmur, gallop, irregular rhythm, rubs, systolic murmur GI/Abdominal exam: ABSENT: mass, organolmegaly, tenderness Extremities exam: PRESENT: pedal edema - 1+ Neurological exam: PRESENT: oriented to situation Psychiatric exam: PRESENT: appropriate affect Results Laboratory Results: Abnormal - 24 hr 12/25/17 12/25/17 12/25/17 11:10 11:10 11:10 RBC 4.32 L Hgb 13.2 L RDW 14.5 H Lymphocytes % 10.3 L Sodium 145.6 H Chloride 111 H BUN 24 H Creatinine 1.35 H Est GFR (Non-Af Amer) 51 L Glucose 57 L POC Glucose Alkaline Phosphatase 139 H NT-Pro-B Natriuret Pep 2590 H Total Protein 6.0 L Albumin 3.3 L 12/25/17 14:25 RBC Hgb RDW Lymphocytes % Sodium Chloride BUN Creatinine Est GFR (Non-Af Amer) Glucose POC Glucose 49 L Alkaline Phosphatase NT-Pro-B Natriuret Pep Total Protein Albumin Impressions: Chest X-Ray 12/25/17 00:00 IMPRESSION: Patchy bilateral airspace densities as noted above which could represent pulmonary edema or pneumonic infiltrates. I cannot exclude a tiny right pleural effusion. Other findings as noted above Assessment & Plan - Diagnosis (1) Acute on chronic combined systolic and diastolic congestive heart failure Is this a current diagnosis for this admission?: Yes Plan: iv furosemide. Dr Armstrong did echo & nuc 1y ago. 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 transplanted heart: [place] heart Qualified Code(s): I25.10 - Atherosclerotic heart disease of [place] coronary artery without angina pectoris Is this a current diagnosis for this admission?: Yes - Inpatient Certification Based on my medical assessment, after consideration of the patient's comorbidities, presenting symptoms, or acuity I expect that the services needed warrant INPATIENT care.: Yes Medical Necessity: Failure to Improve With Outpatient Therapy, Significant Comorbidiites Make Outpatient Treatment Too Risky, Need Close Monitoring Due to Risk of Patient Decompensation, Need For Continuous Telemetry Monitoring, Risk of Complication if Not Cared For in Hospital
--- NOTE | 2017-12-25 19:57 | PDOC CONSULTATION ---
Consultation Consult Date: 12/25/17 Attending physician:: JENISE ACKERMAN Consult reason:: CHF History of Present Illness Admission Date/PCP: 12/25/17 15:07 ZAHRAA WARREN MD Patient complains of: Shortness of breath and pedal edema History of Present Illness: SHANTELLE CURTIS is a 77 year old male with a history of coronary artery bypass surgery in 2012, with a history of CHF, presents today with gradual weight gain of about 20 pounds within the last few weeks, with shortness of breath on minimal exertion. Last night had orthopnea could not lay down flat has to sleep in the couch. Therefore present to the ED. He is on Lasix. Patient on questioning denied any chest, neck discomfort of any sort. He denied any history of sustained palpitations, syncope, near syncope. Patient denied having any recent fever, chills, prior history of strokes or mini strokes. Patient does give history of difficulty falling asleep and staying asleep. He feels very fatigued and tired at night. Past Medical History Cardiac Medical History: Reports: Congestive Heart Failure, Coronary Artery Disease, Hyperlipidema, Hypertension, Peripheral Vascular Disease Denies: Myocardial Infarction Pulmonary Medical History: Reports: None Denies: Asthma, Bronchitis, Chronic Obstructive Pulmonary Disease (COPD), Pneumonia, Tuberculosis EENT Medical History: Reports: Nose - rhinitis Neurological Medical History: Reports: None Denies: Seizures Endocrine Medical History: Reports: Diabetes Mellitus Type 2 Renal/ Medical History: Reports: Chronic Kidney Disease Denies: End Stage Renal Disease Malignancy Medical History: Reports: None GI Medical History: Reports: Gastroesophageal Reflux Disease Denies: Cirrhosis Musculoskeltal Medical History: Reports: Arthritis Skin Medical History: Reports: None Psychiatric Medical History: Reports: None Denies: Bipolar Disorder, Depression Traumatic Medical History: Reports: None Hematology: Reports: Anemia - 2014 iron low. Scope negative Denies: Bleeding Tendencies Infectious Medical History: Reports: None Past Surgical History Past Surgical History: Reports: Cardiac Catheterization, Cholecystectomy, Coronary Artery Bypass Graft - 2006, Other - 2014 graft L popliteal Social History Information Source: Patient Smoking Status: Former Smoker Number of Years Smokin Last Time Smoked: 1996 Frequency of Alcohol Use: None Hx Recreational Drug Use: No Drugs: None Hx Prescription Drug Abuse: No - Advance Directive Resuscitation Status: Full Code Surrogate healthcare decision maker:: Patient's is the surrogate decision-maker Family History Family History: CAD, DM, Hypertension Parental Family History Reviewed: Yes Children Family History Reviewed: Yes Sibling(s) Family History Reviewed.: Yes Medication/Allergy Home Medications: Amlodipine Besylate [Norvasc 10 mg Tablet] 10 mg PO QPM 12/25/17 Aspirin [Adult Low Dose Aspirin EC] 81 mg PO QAM 12/25/17 Atorvastatin Calcium [Lipitor 40 mg Tablet] 40 mg PO QAM 12/25/17 Cetirizine HCl [Zyrtec 10 mg Tablet] 10 mg PO QAM 12/25/17 Cholecalciferol (Vitamin D3) [Vitamin D3 1000 Unit Tablet] 1,000 unit PO QPM 11/06 Clopidogrel Bisulfate [Plavix 75 mg Tablet] 75 mg PO QPM 12/25/17 Duloxetine HCl [Cymbalta] 30 mg PO QAM 12/25/17 Famotidine [Pepcid 20 mg Tablet] 20 mg PO QPM 12/25/17 Fluticasone Propionate [Flonase Nasal [place] 50 Mcg/[place] 16 gm] 2 spray NASL QA 12/25/17 Hum Insulin NPH/Reg Insulin Hm [Novolin 70-30 100 Unit/ml Vial] 100 units SQ BID 12/25/17 Labetalol HCl [Trandate] 300 mg PO BID 12/25/17 Ranitidine HCl [Zantac] 300 mg PO QAM 12/25/17 Furosemide [Lasix 40 mg Tablet] 40 mg PO BID #180 12/29/17 Furosemide [Lasix] 40 mg PO BID #180 tablet 12/29/17 Hydralazine HCl [Apresoline 50 mg Tablet] 50 mg PO Q8 #270 tablet 12/29/17 Isosorbide Mononitrate [Imdur 30 mg Tablet.er] 60 mg PO DAILY #90 tab.er.24h 03/08 Lisinopril [Zestril] 40 mg PO DAILY #90 tablet 12/29/17 Ranolazine [Ranexa 500 mg Tab.sr] 500 mg PO Q12 11 Days #60 tab.sr.12h 12/29/17 Allergies/Adverse Reactions: No Known Allergies Allergy (Verified 12/25/17 10:37) Review of Systems Review of Systems: Please see history of present illness and past medical history as wall. Constitutional: No fever or chills reported. History of fatigue and tiredness. Head : No recent chronic headaches, recent head injury. Eyes: No recent eye pain, diplopia, redness, discharge, acute visual changes. Ears: No recent chronic ear pain, acute hearing loss, ear discharge. Oral cavity: No recent ulcerations, bleeding, oral cavity discomfort. Neck: No recent acute neck pain reported. Hematologic: No recent easy bruising or bleeding. Lymphatic: No recent lymph node enlargement reported. Cardiovascular system review: See history of present illness. Increasing shortness of breath and pedal edema. Respiratory system review: No hemoptysis or blood clots in the lungs reported. Mild Shortness of breath on exertion Gastrointestinal system review: Negative for any recent acute hematemesis, melena. Genitourinary system review: No recent acute or chronic hematuria, flank pain, UTI etc. reported. Skin system review: Negative for any recent abnormal bruising, no rash, no pruritus reported. Neurologic: No prior history of strokes, mini strokes, seizure disorder. Psychologic: No history of major psychosis or major depression reported. Musculoskeletal: Minor aches and pains reported. No acute joint swelling reported. Endocrine: No recent polyuria, polydipsia, recent heat or cold intolerance. Physical Exam Vital Signs: Temp Pulse Resp BP Pulse Ox 97.8 F 76 18 220/97 H 96 12/25/17 10:41 12/25/17 18:53 12/25/17 18:53 12/25/17 18:53 12/25/17 18:53 Exam: GENERAL: well-nourished and in no acute distress. Alert and oriented x3 HEAD: Atraumatic, normocephalic. EYES: Pupils equal round and reactive to light, extraocular movements intact, sclera anicteric, conjunctiva are normal. ENT: TMs normal, nares patent, oropharynx clear without exudates. Moist mucous membranes. No oral ulcerations or bleeding gums noted NECK: supple without lymphadenopathy. Trachea is central. No cervical or axillary lymphadenopathy noted. Carotids are 2+, JVD 10-12 cm LUNGS: Respiration seems nonlabored, no significant accessory muscle action noted. Bibasilar fine crackles are noted. No wheezes rales or rhonchi noted. No significant dullness noted on percussion. CHEST: Palpation of the chest wall shows no significant chest wall tenderness. 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 ABDOMEN: Soft, no significant tenderness appreciated, normoactive bowel sounds. No guarding, no rebound. No rigidity noted . No masses appreciated. EXTREMITIES: Pedal pulses are 1-2+, no calf tenderness noted. No clubbing or cyanosis. 2+ pedal edema noted NEUROLOGICAL: Focused neurological exam showed no significant neurologic deficit. Normal speech, no focal weakness appreciated. PSYCH: Normal mood, normal affect. Judgment and insight within normal limits. SKIN: No significant ecchymosis, skin is noted to be warm. MUSCULOSKELETAL EXAM: No significant acute joint swelling noted. Results Laboratory Results: 12/25/17 16:22 Troponin I 0.031 EKG Comments: Sinus rhythm, right bundle branch block pattern, frequent PVC in bigeminy pattern. Impressions: Chest X-Ray 12/25/17 00:00 IMPRESSION: Patchy bilateral airspace densities as noted above which could represent pulmonary edema or pneumonic infiltrates. I cannot exclude a tiny right pleural effusion. Other findings as noted above Assessment & Plan - Diagnosis (1) CHF (congestive heart failure) Qualifiers: Heart failure type: unspecified Heart failure chronicity: acute on chronic Qualified Code(s): I50.9 - Heart failure, unspecified Is this a current diagnosis for this admission?: Yes (2) Atherosclerotic heart disease of [place] coronary artery without angina pectoris Qualifiers: [place] vs. transplanted heart: [place] heart Qualified Code(s): I25.10 - Atherosclerotic heart disease of [place] coronary artery without angina pectoris Is this a current diagnosis for this admission?: Yes (3) Morbid (severe) obesity due to excess calories Is this a current diagnosis for this admission?: Yes (4) Ventricular ectopic complex Is this a current diagnosis for this admission?: Yes (5) Sleep disorder breathing Is this a current diagnosis for this admission?: Yes - Notes Notes: Congestive heart failure: Most likely related to combined systolic and diastolic dysfunction in view of history of CAD and prior CABG. A 2D echo has been ordered. At this point recommend diuretic therapy, optimization of beta- darnell, SHAHLA inhibitor therapy. We will also consider digoxin and his spironolactone therapy. CAD: Patient without any chest pain. So far cardiac enzymes has been unremarkable. Will review previous cardiac workup. If needed will consider a nuclear stress test as an outpatient. Morbid obesity: Patient has been advised to lose weight. Sleep disordered breathing: Patient will benefit from weight loss and also evaluation and treatment of sleep apnea if present. Patient was explained that sleep apnea often cause LV systolic as well as diastolic dysfunction and increases risk of myocardial infarction and also progression of CAD. Cardiac dysrhythmia: She is noted to have increased ventricular ectopy. Possibly related to CHF, cardiomyopathy, treat with beta-darnell, maintain electrolytes within WNL. Prognosis discussed with the patient. - Time Time Spent: 30 to 50 Minutes - CODE STATUS was discussed, patient remains full code. Surrogate decision-maker unchanged. Multiple medical problems were addressed. More than 50% of the time spent coordinating care, discussing management plans with involved caregivers. Management plans discussed with involved personnels. Medical decision making was of moderate to high complexity , patient's has multiple comorbidities. Medications reviewed and adjusted accordingly: Yes
[2017-12-25] MEDS: AMLODIPINE BESYLATE 10 MG TABLET PO SCH (21:55)
[2017-12-25] MEDS: CLOPIDOGREL BISULFATE 75 MG TABLET PO SCH (21:56)
[2017-12-25] MEDS: FAMOTIDINE 20 MG TABLET PO SCH (21:56)
[2017-12-25] MEDS: HYDRALAZINE HCL 25 MG TABLET PO SCH (21:58)
[2017-12-25] MEDS: FUROSEMIDE INJ/PF 40 MG/4 ML SDV IV SCH (21:58)
--- NOTE | 2017-12-25 22:28 | EKG REPORT ---
SEVERITY:- ABNORMAL ECG - SINUS RHYTHM VENTRICULAR BIGEMINY PROBABLE LEFT ATRIAL ABNORMALITY RIGHT BUNDLE BRANCH BLOCK : Confirmed by: Suly Geiger MD 25-Dec-2017 22:27:45
[2017-12-26 00:05] LABS: POTASSIUM 4.1 mmol/L (3.6-5.0)
[2017-12-26] MEDS ORDERED: HYDRALAZINE HCL INJ/PF 20 MG/1 ML SDV ONE ×2 (03:50→20:33)
--- NOTE | 2017-12-26 07:08 | PDOC PROGRESS REPORT ---
Subjective Progress Note for:: 12/26/17 Subjective:: less dyspnea. Slept flatter. Reason For Visit: CONGESTIVE HEART FAILURE Physical Exam Vital Signs: Temp Pulse Resp BP Pulse Ox 98.1 F 76 22 H 167/51 H 96 12/25/17 23:05 12/26/17 02:00 12/25/17 23:05 12/25/17 23:05 12/25/17 23:05 Intake & Output 12/24/17 12/25/17 12/26/17 07:59 07:59 07:59 Output Total 1250 Balance -1250 Weight 336 lb 3.279 oz General appearance: PRESENT: no acute distress Respiratory exam: PRESENT: clear to auscultation monserrat Cardiovascular exam: ABSENT: diastolic murmur, irregular rhythm, systolic murmur GI/Abdominal exam: ABSENT: mass, organolmegaly, tenderness Extremities exam: PRESENT: pedal edema Neurological exam: PRESENT: oriented to situation Psychiatric exam: PRESENT: appropriate affect Results Laboratory Results: 12/25/17 23:29 12/25/17 23:29 Potassium 4.1 Magnesium 2.0 12/25/17 16:22 Troponin I 0.031 Impressions: Chest X-Ray 12/25/17 00:00 IMPRESSION: Patchy bilateral airspace densities as noted above which could represent pulmonary edema or pneumonic infiltrates. I cannot exclude a tiny right pleural effusion. Other findings as noted above Assessment & Plan - Diagnosis (1) Acute on chronic combined systolic and diastolic congestive heart failure Is this a current diagnosis for this admission?: Yes Plan: Dr Berkowitz ordered echo. Added carvedilol since labetalol nonformulary. 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 transplanted heart: [place] heart Qualified Code(s): I25.10 - Atherosclerotic heart disease of [place] coronary artery without angina pectoris Is this a current diagnosis for this admission?: Yes - Inpatient Certification Medical Necessity: Significant Comorbidiites Make Outpatient Treatment Too Risky , Need Close Monitoring Due to Risk of Patient Decompensation, Need For Continuous Telemetry Monitoring, Risk of Complication if Not Cared For in Hospital, Risk of Diagnosis Which Will Require Inpatient Eval/Care/Monitoring
[2017-12-26 07:35] LABS: ANION GAP 12 (5-19); BLOOD UREA NITROGEN 21 mg/dL (7-20); CALCIUM 8.7 mg/dL (8.4-10.2); CARBON DIOXIDE 22 mmol/L (22-30); CHLORIDE 108 mmol/L (98-107); GLUCOSE 113 mg/dL (75-110); POTASSIUM 4.2 mmol/L (3.6-5.0); SODIUM 142.3 mmol/L (137-145)
[2017-12-26] MEDS ORDERED: LISINOPRIL 10 MG TABLET PO SCH (10:00)
[2017-12-26] MEDS: FUROSEMIDE INJ/PF 40 MG/4 ML SDV IV SCH ×2 (10:39→21:15)
[2017-12-26] MEDS: ENOXAPARIN SODIUM INJ 40 MG/0.4 ML DISP.SYRIN SUBCUT SCH (10:41)
[2017-12-26] MEDS: ATORVASTATIN CALCIUM 40 MG TABLET PO SCH (10:42)
[2017-12-26] MEDS: ASPIRIN 81 MG TABLET, ENT COATED PO SCH (10:42)
[2017-12-26] MEDS: CETIRIZINE 10 MG TABLET PO SCH (10:42)
[2017-12-26] MEDS: HYDRALAZINE HCL 25 MG TABLET PO SCH ×2 (10:42→21:16)
[2017-12-26] MEDS: DULOXETINE HCL 30 MG CAPSULE.DR PO SCH (10:42)
[2017-12-26] MEDS: FLUTICASONE NASAL SPRAY 50 MCG/SPRY 120 SPRAY/16 GM NASL SCH (10:43)
[2017-12-26] MEDS: CARVEDILOL 12.5 MG TABLET PO SCH ×2 (15:55→21:16)
[2017-12-26] MEDS: HUM INSULIN NPH/REG INSULIN HM 100 UNIT/1 ML 3 ML SUBCUT SCH (18:56)
[2017-12-26] MEDS: FAMOTIDINE 20 MG TABLET PO SCH (18:59)
[2017-12-26] MEDS: CLOPIDOGREL BISULFATE 75 MG TABLET PO SCH (18:59)
[2017-12-26] MEDS: AMLODIPINE BESYLATE 10 MG TABLET PO SCH (18:59)
[2017-12-26] MEDS ORDERED: HYDRALAZINE HCL INJ/PF 20 MG/1 ML SDV IV PRN (20:59)
--- NOTE | 2017-12-26 22:42 | PDOC PROGRESS REPORT ---
Subjective Progress Note for:: 12/26/17 Subjective:: Patient seems to be doing better with gradual improvement. Pt is denying any chest arm or neck discomfort. Patient denying any PND, orthopnea. Patient denied any sustained palpitations, dizziness, syncope, near syncope. Patient denying any fever chills. Patient denying any other significant discomfort. Review of systems: Rest review of systems negative. Medications: Medications have been reviewed. Telemetry strips reviewed. Showed sinus rhythm with PVCs but also a nonsustained run of NSVT asymptomatis Reason For Visit: CONGESTIVE HEART FAILURE Physical Exam Vital Signs: Temp Pulse Resp BP Pulse Ox 98.6 F 72 18 175/63 H 93 12/26/17 19:28 12/26/17 19:28 12/26/17 19:28 12/26/17 19:28 12/26/17 19:28 Intake & Output 12/25/17 12/26/17 12/27/17 06:59 06:59 06:59 Intake Total 1510 Output Total 1250 1250 Balance -1250 260 Weight 152.5 kg Exam: GENERAL: well-nourished and in no acute distress. Alert and oriented x3 HEAD: Atraumatic, normocephalic. EYES: Pupils equal round and reactive to light, extraocular movements intact, sclera anicteric, conjunctiva are normal. ENT: TMs normal, nares patent, oropharynx clear without exudates. Moist mucous membranes. No oral ulcerations or bleeding gums noted NECK: supple without lymphadenopathy. Trachea is central. No cervical or axillary lymphadenopathy noted. Carotids are 2+, JVD 10 cm LUNGS: Respiration seems nonlabored, no significant accessory muscle action noted. Bibasilar fine crackles are noted. No wheezes rales or rhonchi noted. No significant dullness noted on percussion. CHEST: Palpation of the chest wall shows no significant chest wall tenderness. 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 ABDOMEN: Soft, no significant tenderness appreciated, normoactive bowel sounds. No guarding, no rebound. No rigidity noted . No masses appreciated. EXTREMITIES: Pedal pulses are 1-2+, no calf tenderness noted. No clubbing or cyanosis. 1-2+ pedal edema noted NEUROLOGICAL: Focused neurological exam showed no significant neurologic deficit. Normal speech, no focal weakness appreciated. PSYCH: Normal mood, normal affect. Judgment and insight within normal limits. SKIN: No significant ecchymosis, skin is noted to be warm. MUSCULOSKELETAL EXAM: No significant acute joint swelling noted. Results Laboratory Results: 12/26/17 06:44 12/25/17 12/26/17 23:29 06:44 Sodium 142.3 Potassium 4.1 4.2 Chloride 108 H Carbon Dioxide 22 Anion Gap 12 BUN 21 H Creatinine 1.15 Est GFR ( Amer) > 60 Est GFR (Non-Af Amer) > 60 Glucose 113 H Calcium 8.7 Magnesium 2.0 12/25/17 16:22 Troponin I 0.031 EKG Comments: Telemetry showed nonsustained run of wide-complex tachycardia, possibly V. tach but cannot rule out aberrant conduction with transient A. fib. Impressions: Chest X-Ray 12/25/17 00:00 IMPRESSION: Patchy bilateral airspace densities as noted above which could represent pulmonary edema or pneumonic infiltrates. I cannot exclude a tiny right pleural effusion. Other findings as noted above Assessment & Plan - Diagnosis (1) Congestive heart failure Qualifiers: Heart failure type: combined systolic and diastolic Heart failure chronicity: acute Qualified Code(s): I50.41 - Acute combined systolic ( congestive) and diastolic (congestive) heart failure Is this a current diagnosis for this admission?: Yes (2) NSVT (nonsustained ventricular tachycardia) Is this a current diagnosis for this admission?: Yes (3) Acute on chronic combined systolic and diastolic congestive heart failure Is this a current diagnosis for this admission?: Yes (4) Atherosclerosis of [place] artery of left lower extremity with intermittent claudication Is this a current diagnosis for this admission?: Yes (5) Atherosclerotic heart disease of [place] coronary artery without angina pectoris Qualifiers: [place] vs. transplanted heart: [place] heart Qualified Code(s): I25.10 - Atherosclerotic heart disease of [place] coronary artery without angina pectoris Is this a current diagnosis for this admission?: Yes (6) Type 2 diabetes mellitus with diabetic nephropathy Qualifiers: Diabetes mellitus petroleum terminal plant operator insulin use: with petroleum terminal plant operator use Qualified Code( s): E11.21 - Type 2 diabetes mellitus with diabetic nephropathy; Z79.4 - half-way (current) use of insulin; Z79.4 - intermediate teacher (current) use of insulin; Z79.4 - intermediate teacher (current) use of insulin; Z79.4 - intermediate teacher (current) use of insulin Is this a current diagnosis for this admission?: Yes (7) Hypertension Qualifiers: Hypertension type: essential hypertension Qualified Code(s): I10 - Essential (primary) hypertension Is this a current diagnosis for this admission?: Yes (8) Morbid (severe) obesity due to excess calories Is this a current diagnosis for this admission?: Yes (9) Sleep disorder breathing Is this a current diagnosis for this admission?: Yes - Notes Notes: Agree with beta blockers, start ranexa, start Bipap. Recommend lifevest prior to discharge Congestive heart failure: Most likely related to combined systolic and diastolic dysfunction in view of history of CAD and prior CABG. A 2D echo has been ordered. 2D echo was obtained. This was technically difficult. Preliminary report shows depressed LVEF, quite significant but study quality was poor. At this point recommend diuretic therapy, optimization of beta- darnell, SHAHLA inhibitor therapy. We will also consider digoxin and spironolactone therapy. CAD: Patient without any chest pain. So far cardiac enzymes has been unremarkable. Will review previous cardiac workup. If needed will consider a nuclear stress test as an outpatient. Morbid obesity: Patient has been advised to lose weight. Sleep disordered breathing: Patient will benefit from weight loss and also evaluation and treatment of sleep apnea if present. Patient was explained that sleep apnea often cause LV systolic as well as diastolic dysfunction and increases risk of myocardial infarction and also progression of CAD. Cardiac dysrhythmia: Patient is noted to have increased ventricular ectopy. Possibly related to CHF, cardiomyopathy, treat with beta-darnell, maintain electrolytes within WNL. Ranexa might help in this regard. Also treating patient for any sleep apnea problem with nightly BiPAP therapy will also help. Prognosis discussed with the patient. - Time Time with patient: Greater than 35 minutes - CODE STATUS was discussed, patient remains full code. Surrogate decision-maker unchanged. Multiple medical problems were addressed. More than 50% of the time spent coordinating care, discussing management plans with involved caregivers. Management plans discussed with involved personnels. Medical decision making was of moderate to high complexity, patient's has multiple comorbidities. Medications reviewed and adjusted accordingly: Yes
[2017-12-27] MEDS ORDERED: NITROGLYCERIN 2% OINTMENT 1 GM PACKET ONE (03:36)
[2017-12-27] MEDS ORDERED: NITROGLYCERIN 2% OINTMENT 1 GM PACKET TP ONE (04:00)
[2017-12-27 06:08] LABS: ANION GAP 12 (5-19); BLOOD UREA NITROGEN 27 mg/dL (7-20); CARBON DIOXIDE 24 mmol/L (22-30); CHLORIDE 104 mmol/L (98-107); GLUCOSE 193 mg/dL (75-110); POTASSIUM 4.2 mmol/L (3.6-5.0); SODIUM 140.1 mmol/L (137-145)
[2017-12-27] MEDS: HUM INSULIN NPH/REG INSULIN HM 100 UNIT/1 ML 3 ML SUBCUT SCH ×2 (07:59→16:45)
[2017-12-27] MEDS ORDERED: LISINOPRIL 10 MG TABLET PO SCH (08:00)
[2017-12-27] MEDS: ATORVASTATIN CALCIUM 40 MG TABLET PO SCH (08:01)
[2017-12-27] MEDS: CETIRIZINE 10 MG TABLET PO SCH (08:01)
[2017-12-27] MEDS: ASPIRIN 81 MG TABLET, ENT COATED PO SCH (08:02)
[2017-12-27] MEDS: DULOXETINE HCL 30 MG CAPSULE.DR PO SCH (08:02)
[2017-12-27] MEDS: FLUTICASONE NASAL SPRAY 50 MCG/SPRY 120 SPRAY/16 GM NASL SCH (08:03)
--- NOTE | 2017-12-27 08:35 | PDOC PROGRESS REPORT ---
Subjective Progress Note for:: 12/27/17 Subjective:: less dyspnea Reason For Visit: CONGESTIVE HEART FAILURE Physical Exam Vital Signs: Temp Pulse Resp BP Pulse Ox 97.9 F 29 L 18 151/63 H 95 12/27/17 07:44 12/27/17 07:44 12/27/17 07:44 12/27/17 07:44 12/27/17 07:44 Intake & Output 12/26/17 12/27/17 12/28/17 07:59 07:59 07:59 Intake Total 1510 Output Total 1250 2100 Balance -1250 -590 Weight 336 lb 3.279 oz 291 lb 7.218 oz General appearance: PRESENT: no acute distress Respiratory exam: PRESENT: clear to auscultation monserrat Cardiovascular exam: ABSENT: diastolic murmur, irregular rhythm, systolic murmur GI/Abdominal exam: ABSENT: mass, organolmegaly, tenderness Extremities exam: PRESENT: pedal edema Neurological exam: PRESENT: oriented to situation Psychiatric exam: PRESENT: appropriate affect Results Laboratory Results: 12/27/17 04:37 12/27/17 04:37 Sodium 140.1 Potassium 4.2 Chloride 104 Carbon Dioxide 24 Anion Gap 12 BUN 27 H Creatinine 1.36 H Est GFR ( Amer) > 60 Est GFR (Non-Af Amer) 51 L Glucose 193 H Calcium 9.0 12/25/17 16:22 Troponin I 0.031 Impressions: Chest X-Ray 12/25/17 00:00 IMPRESSION: Patchy bilateral airspace densities as noted above which could represent pulmonary edema or pneumonic infiltrates. I cannot exclude a tiny right pleural effusion. Other findings as noted above Assessment & Plan - Diagnosis (1) Acute on chronic combined systolic and diastolic congestive heart failure Is this a current diagnosis for this admission?: Yes Plan: bun27 cr1.4. Echo done. Added hydralazine for persistant hypertension. Consider imdur. (2) Type 2 diabetes mellitus with diabetic nephropathy Qualifiers: Diabetes mellitus senior living insulin use: with senior living use Qualified Code( s): E11.21 - Type 2 diabetes mellitus with diabetic nephropathy; Z79.4 - bed bug exterminator (current) use of insulin; Z79.4 - [facility] (current) use of insulin; Z79.4 - bed bug exterminator (current) use of insulin; Z79.4 - bed bug exterminator (current) use of insulin Is this a current diagnosis for this admission?: Yes (3) Atherosclerosis of [place] artery of left lower extremity with intermittent claudication Is this a current diagnosis for this admission?: Yes (4) Atherosclerotic heart disease of [place] coronary artery without angina pectoris Qualifiers: [place] vs. transplanted heart: [place] heart Qualified Code(s): I25.10 - Atherosclerotic heart disease of [place] coronary artery without angina pectoris Is this a current diagnosis for this admission?: Yes (5) NSVT (nonsustained ventricular tachycardia) Is this a current diagnosis for this admission?: Yes Plan: [place]ama suggested lifevest. - Inpatient Certification Medical Necessity: Significant Comorbidiites Make Outpatient Treatment Too Risky , Need Close Monitoring Due to Risk of Patient Decompensation, Need For Continuous Telemetry Monitoring, Risk of Complication if Not Cared For in Hospital, Risk of Diagnosis Which Will Require Inpatient Eval/Care/Monitoring
[2017-12-27] MEDS: RANOLAZINE 500 MG TAB.SR.12H PO SCH ×2 (09:40→22:16)
[2017-12-27] MEDS: CARVEDILOL 12.5 MG TABLET PO SCH ×2 (09:47→22:15)
[2017-12-27] MEDS: FUROSEMIDE INJ/PF 40 MG/4 ML SDV IV SCH ×2 (09:49→22:20)
[2017-12-27] MEDS: ENOXAPARIN SODIUM INJ 40 MG/0.4 ML DISP.SYRIN SUBCUT SCH (09:50)
[2017-12-27] MEDS ORDERED: HYDRALAZINE HCL 50 MG TABLET PO SCH (10:00)
--- NOTE | 2017-12-27 12:53 | XCELERA REPORT ---
[address] [address] Transthoracic Echocardiogram Report Name: SHANTELLE CURTIS Age: 77 yrs Gender: Male : 1940 Patient Status: Inpatient Patient Location: [address] [place], [place] [address] Study Date: 12/26/2017 03:58 PM Height: 73 in Weight: 336 lb BSA: 2.7 m2 Procedure: A complete two-dimensional transthoracic echocardiogram was performed (2D, M-mode, spectral and color flow Doppler). The study was technically difficult with many images being suboptimal in quality. Reason For Study: [facility] Ordering Physician: PATRICIA HERNANDES Performed By: Sonja John Interpretation Summary Left ventricular systolic function is moderately reduced. Consider additional methods to assess LVEF such as MUGA scan, CTA heart, cardiac MRI, FLORA, etc. if clinically indicated. Doppler measurements suggest pseudonormalized left ventricular relaxation, which is associated with grade II/IV or mild to moderate diastolic dysfunction There is mild concentric left ventricular hypertrophy. The left ventricle is mildly dilated. Wall motion cannot be accurately commented on, but no definite regional wall motion abnormalities noted. The right ventricle is mildly dilated. The right ventricle appears to be hypertrophied Right ventricular function cannot be assessed due to poor image quality. The right atrium is mildly dilated. The left atrium is moderately dilated. There is no mitral valve stenosis. There is a mild amount of mitral regurgitation There is no aortic valve stenosis No aortic regurgitation is present. There is a mild amount of tricuspid regurgitation There is moderate to severe pulmonary hypertension by echo Best estimated RVSP is approximately 60-65 mm/Hg. There is no pericardial effusion. MMode/2D Measurements & Calculations RVDd: 4.0 cm LVIDd: 6.3 cm FS: 13.7 % Ao root diam: 3.0 cm IVSd: 1.1 cm LVIDs: 5.4 cm EDV(Teich): 199.1 ml Ao root area: 7.0 cm2 LVPWd: 1.1 cm ESV(Teich): 142.2 ml EF(Teich): 28.6 % Doppler Measurements & Calculations MV E max kelsey: MV dec slope: Ao V2 max: LV V1 max P.5 cm/sec 840.5 cm/sec2 152.1 cm/sec 4.3 mmHg MV A max kelsey: MV dec time: Ao max PG: LV V1 max: 126.2 cm/sec 0.19 sec 9.3 mmHg 103.8 cm/sec MV E/A: 1.3 MR max kelsey: PA V2 max: TR max kelsey: 445.2 cm/sec 136.1 cm/sec 326.1 cm/sec MR max PG: PA max P.4 mmHg TR max P.3 mmHg 43.1 mmHg Left Ventricle The left ventricle is mildly dilated. There is mild concentric left ventricular hypertrophy. Left ventricular systolic function is moderately reduced. Consider additional methods to assess LVEF such as MUGA scan, CTA heart, cardiac MRI, FLORA, etc. if clinically indicated. Doppler measurements suggest pseudonormalized left ventricular relaxation, which is associated with grade II/IV or mild to moderate diastolic dysfunction. Wall motion cannot be accurately commented on, but no definite regional wall motion abnormalities noted. Right Ventricle The right ventricle is mildly dilated. The right ventricle appears to be hypertrophied. Right ventricular function cannot be assessed due to poor image quality. Atria The right atrium is mildly dilated. The left atrium is moderately dilated. Interarterial septum not well visualized and not well dopplered. Cannot comment on ASD/PFO presence. Mitral Valve There is mild mitral leaflet calcification. There is mild mitral annular calcification. There is no mitral valve stenosis. There is a mild amount of mitral regurgitation. Aortic Valve The aortic valve is not well visualized secondary to technical limitations. There is no aortic valve stenosis. No aortic regurgitation is present. Tricuspid Valve The tricuspid valve is not well visualized secondary to technical limitations. There is no tricuspid stenosis. There is a mild amount of tricuspid regurgitation. There is moderate to severe pulmonary hypertension by echo. Best estimated RVSP is approximately 60-65 mm/Hg. Pulmonic Valve The pulmonic valve is not well visualized. Great Vessels The aortic root is not well visualized. The inferior vena cava appeared normal and decreased > 50% with respiration (RAP 5-10 mmHg). Effusions There is no pericardial effusion. : PATRICIA HERNANDES > Patricia Hernandes
[2017-12-27] MEDS: HYDRALAZINE HCL 50 MG TABLET PO SCH ×2 (15:37→22:16)
[2017-12-27] MEDS: CLOPIDOGREL BISULFATE 75 MG TABLET PO SCH (18:07)
[2017-12-27] MEDS: FAMOTIDINE 20 MG TABLET PO SCH (18:07)
[2017-12-27] MEDS: AMLODIPINE BESYLATE 10 MG TABLET PO SCH (18:08)
[2017-12-28] MEDS: HYDRALAZINE HCL 50 MG TABLET PO SCH ×3 (05:05→23:30)
[2017-12-28 06:41] LABS: ANION GAP 14 (5-19); BLOOD UREA NITROGEN 31 mg/dL (7-20); CARBON DIOXIDE 26 mmol/L (22-30); CHLORIDE 102 mmol/L (98-107); GLUCOSE 105 mg/dL (75-110); POTASSIUM 3.6 mmol/L (3.6-5.0); SODIUM 142.4 mmol/L (137-145)
--- NOTE | 2017-12-28 08:10 | PDOC PROGRESS REPORT ---
Subjective Progress Note for:: 12/28/17 Subjective:: slept flat Reason For Visit: CONGESTIVE HEART FAILURE Physical Exam Vital Signs: Temp Pulse Resp BP Pulse Ox 97.9 F 58 L 18 163/56 H 94 12/27/17 23:31 12/28/17 02:00 12/27/17 23:31 12/27/17 23:31 12/27/17 23:31 Intake & Output 12/26/17 12/27/17 12/28/17 07:59 07:59 07:59 Intake Total 1510 1749 Output Total 1250 2100 1150 Balance -1250 -590 599 Weight 336 lb 3.279 oz 291 lb 7.218 oz 313 lb 11.485 oz General appearance: PRESENT: no acute distress Respiratory exam: PRESENT: clear to auscultation monserrat Cardiovascular exam: ABSENT: diastolic murmur, irregular rhythm, systolic murmur GI/Abdominal exam: ABSENT: mass, organolmegaly, tenderness Extremities exam: PRESENT: pedal edema - 1+ Neurological exam: PRESENT: oriented to situation Psychiatric exam: PRESENT: appropriate affect Results Laboratory Results: 12/27/17 04:37 12/27/17 04:37 Sodium 140.1 Potassium 4.2 Chloride 104 Carbon Dioxide 24 Anion Gap 12 BUN 27 H Creatinine 1.36 H Est GFR ( Amer) > 60 Est GFR (Non-Af Amer) 51 L Glucose 193 H Calcium 9.0 12/25/17 16:22 Troponin I 0.031 Impressions: Chest X-Ray 12/25/17 00:00 IMPRESSION: Patchy bilateral airspace densities as noted above which could represent pulmonary edema or pneumonic infiltrates. I cannot exclude a tiny right pleural effusion. Other findings as noted above Assessment & Plan - Diagnosis (1) Acute on chronic combined systolic and diastolic congestive heart failure Is this a current diagnosis for this admission?: Yes Plan: down 31#. Echo: La=big mr=moderate ddf=2 pw=11 Lv=big hk? ej+ ar- grd- Rvp65 Ra= Rv=big. BP still high. Increased imdur to 60. On ace40 [id number]. chfDS Pht. MUGA pending. Stop alena to start [id number]*51 in 36h. (2) NSVT (nonsustained ventricular tachycardia) Is this a current diagnosis for this admission?: Yes Plan: monitor QTc>500. Was 440. Ekg. KCl. Life vest churning through discharge planning. Mg. 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 transplanted heart: [place] heart Qualified Code(s): I25.10 - Atherosclerotic heart disease of [place] coronary artery without angina pectoris Is this a current diagnosis for this admission?: Yes (6) Morbid (severe) obesity due to excess calories Is this a current diagnosis for this admission?: Yes - Inpatient Certification Medical Necessity: Significant Comorbidiites Make Outpatient Treatment Too Risky , Need Close Monitoring Due to Risk of Patient Decompensation, Need For IV Fluids, Risk of Complication if Not Cared For in Hospital, Risk of Diagnosis Which Will Require Inpatient Eval/Care/Monitoring
[2017-12-28] MEDS: CETIRIZINE 10 MG TABLET PO SCH (08:16)
[2017-12-28] MEDS: ATORVASTATIN CALCIUM 40 MG TABLET PO SCH (08:16)
[2017-12-28] MEDS: ASPIRIN 81 MG TABLET, ENT COATED PO SCH (08:16)
[2017-12-28] MEDS: HUM INSULIN NPH/REG INSULIN HM 100 UNIT/1 ML 3 ML SUBCUT SCH ×2 (08:17→17:05)
[2017-12-28] MEDS: DULOXETINE HCL 30 MG CAPSULE.DR PO SCH (08:35)
[2017-12-28] MEDS: FLUTICASONE NASAL SPRAY 50 MCG/SPRY 120 SPRAY/16 GM NASL SCH (08:35)
[2017-12-28] MEDS: POTASSIUM CHLORIDE 10 MEQ CAPSULE.ER PO SCH ×2 (10:14→23:31)
[2017-12-28] MEDS: FUROSEMIDE 40 MG TABLET PO SCH ×2 (10:14→17:46)
[2017-12-28] MEDS: CARVEDILOL 12.5 MG TABLET PO SCH ×2 (10:15→23:31)
[2017-12-28] MEDS: ENOXAPARIN SODIUM INJ 40 MG/0.4 ML DISP.SYRIN SUBCUT SCH (10:15)
[2017-12-28] MEDS: RANOLAZINE 500 MG TAB.SR.12H PO SCH ×2 (10:15→23:32)
--- NOTE | 2017-12-28 11:37 | EKG REPORT ---
SEVERITY:- ABNORMAL ECG - SINUS RHYTHM PAIRED VENTRICULAR PREMATURE COMPLEXES PROBABLE LEFT ATRIAL ABNORMALITY RIGHT BUNDLE BRANCH BLOCK : Confirmed by: Suly Geiger MD 28-Dec-2017 11:36:23
[2017-12-28] MEDS ORDERED: ISOSORBIDE MONONITRATE 30 MG TAB.ER.24H PO SCH ×2 (13:00)
--- NOTE | 2017-12-28 13:15 | RADIOLOGY REPORT (SQ) ---
EXAM DESCRIPTION: NM MUGA REST COMPLETED DATE/TIME: 12/28/2017 12:54 pm REASON FOR STUDY: CHF COMPARISON: None. RADIONUCLIDE AND DOSE: 26.8 mCi technetium 99m labeled red blood cells The route of agent administration: Intravenous TECHNIQUE: Following administration of the radionuclide, gated images of the heart are obtained in t hree projections. Left ventricular functional analysis performed. LIMITATIONS: None. FINDINGS: LEFT VENTRICULAR FUNCTION: EJECTION FRACTION: 66%. END-DIASTOLIC VOLUME: 141 mL. END-SYSTOLIC VOLUME: 49 mL. WALL MOTION: No focal wall motion abnormalities. OTHER: No other significant finding. IMPRESSION: NORMAL CARDIAC MUGA STUDY. Normal left ventricular ejection fraction at 66%. TECHNICAL DOCUMENTATION: JOB ID: [id number] [employer]- All Rights Reserved Reading location - IP/workstation name: [email or web address]
[2017-12-28] MEDS: CLOPIDOGREL BISULFATE 75 MG TABLET PO SCH (17:46)
[2017-12-28] MEDS: FAMOTIDINE 20 MG TABLET PO SCH (17:46)
[2017-12-28] MEDS: AMLODIPINE BESYLATE 10 MG TABLET PO SCH (17:47)
[2017-12-28] MEDS ORDERED: SACUBITRIL/VALSARTAN 49 MG/51 MG TABLET PO SCH (22:00)
--- NOTE | 2017-12-28 23:17 | PDOC PROGRESS REPORT ---
Subjective Progress Note for:: 12/28/17 Subjective:: Patient seems to be doing better with gradual improvement. Pt is denying any chest arm or neck discomfort. Patient denying any PND, orthopnea. Patient denied any sustained palpitations, dizziness, syncope, near syncope. Patient denying any fever chills. Patient denying any other significant discomfort. Patient is maintaining sinus rhythm. Ventricular ectopy has significantly decreased as CHF is coming under better control. MUGA scan showed well preserved LVEF. Therefore patient will not qualify for LifeVest. Review of systems: Rest review of systems negative. Medications: Medications have been reviewed. Reason For Visit: CONGESTIVE HEART FAILURE Physical Exam Vital Signs: Temp Pulse Resp BP Pulse Ox 98.0 F 65 18 148/64 H 96 12/28/17 16:38 12/28/17 16:38 12/28/17 16:38 12/28/17 16:38 12/28/17 16:38 Intake & Output 12/27/17 12/28/17 12/29/17 06:59 06:59 06:59 Intake Total 1510 1949 2050 Output Total 2100 1650 1800 Balance -590 299 250 Weight 132.2 kg 142.3 kg Exam: GENERAL: well-nourished and in no acute distress. Alert and oriented x3 HEAD: Atraumatic, normocephalic. EYES: Pupils equal round and reactive to light, extraocular movements intact, sclera anicteric, conjunctiva are normal. ENT: TMs normal, nares patent, oropharynx clear without exudates. Moist mucous membranes. No oral ulcerations or bleeding gums noted NECK: supple without lymphadenopathy. Trachea is central. No cervical or axillary lymphadenopathy noted. Carotids are 2+, JVD 8 cm LUNGS: Respiration seems nonlabored, no significant accessory muscle action noted. Breath sounds clear to auscultation bilaterally and equal noted. No wheezes rales or rhonchi noted. No significant dullness noted on percussion. CHEST: Palpation of the chest wall shows no significant chest wall tenderness. 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 ABDOMEN: Soft, no significant tenderness appreciated, normoactive bowel sounds. No guarding, no rebound. No rigidity noted . No masses appreciated. EXTREMITIES: Pedal pulses are 1-2+, no calf tenderness noted. No clubbing or cyanosis. 1+ pedal edema noted NEUROLOGICAL: Focused neurological exam showed no significant neurologic deficit. Normal speech, no focal weakness appreciated. PSYCH: Normal mood, normal affect. Judgment and insight within normal limits. SKIN: No significant ecchymosis, skin is noted to be warm. MUSCULOSKELETAL EXAM: No significant acute joint swelling noted. Results Laboratory Results: 12/28/17 05:23 12/28/17 12/28/17 05:23 05:23 Sodium 142.4 Potassium 3.6 Chloride 102 Carbon Dioxide 26 Anion Gap 14 BUN 31 H Creatinine 1.51 H Est GFR ( Amer) 55 L Est GFR (Non-Af Amer) 45 L Glucose 105 Calcium 9.0 Magnesium 2.2 12/25/17 16:22 Troponin I 0.031 EKG Comments: Shows sinus rhythm without any sustained tachycardia or bradycardia. Frequent but much less PVCs noted. Impressions: Chest X-Ray 12/25/17 00:00 IMPRESSION: Patchy bilateral airspace densities as noted above which could represent pulmonary edema or pneumonic infiltrates. I cannot exclude a tiny right pleural effusion. Other findings as noted above MUGA 12/28/17 10:00 IMPRESSION: NORMAL CARDIAC MUGA STUDY. Normal left ventricular ejection fraction at 66%. 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 transplanted heart: [place] heart Qualified Code(s): I25.10 - Atherosclerotic heart disease of [place] coronary artery without angina pectoris Is this a current diagnosis for this admission?: Yes (6) Type 2 diabetes mellitus with diabetic nephropathy Qualifiers: Diabetes mellitus snf insulin use: with termite control technician use Qualified Code( s): E11.21 - Type 2 diabetes mellitus with diabetic nephropathy; Z79.4 - termite control technician (current) use of insulin; Z79.4 - termite control technician (current) use of insulin; Z79.4 - skilled nursing (current) use of insulin; Z79.4 - termite control technician (current) use of insulin Is this a current diagnosis for this admission?: Yes - Notes Notes: Much improved. MUGA EF 66%. Would not qualify for lifevest. Continue optimization of CHF therapy with beta blockers, continue on Ranexa, continue Bipap, patient was desensitized with daytime use. Prinivil dose has been increased. Patient's medical regimen reviewed and is noted to be very satisfactory. Congestive heart failure: MUGA scan reviewed. Agree with reading by the radiologist. Patient therefore has acute on chronic diastolic heart failure. At this point recommend diuretic therapy, optimization of beta-darnell, SHAHLA inhibitor therapy. Consider spironolactone therapy. CAD: Patient without any chest pain. So far cardiac enzymes has been unremarkable. Have recommended a stress test as an outpatient. Peripheral vascular disease: Patient gives history of peripheral vascular disease with peripheral bypass. Currently without any signs of tissue ischemia. Hypertension: Blood pressure has been elevated. Continue with increased hydralazine to 50 mg p.o. every 8. Have also placed patient on Imdur. BP goal is 135/85 or less. Diabetes: This is being expertly managed by the sales relationship manager Dr. Capellan. Morbid obesity: Patient has been advised to lose weight. Sleep disordered breathing: Patient will benefit from weight loss and also evaluation and treatment of sleep apnea if present. Patient was explained that sleep apnea often cause LV systolic as well as diastolic dysfunction and increases risk of myocardial infarction and also progression of CAD. Cardiac dysrhythmia: Patient is noted to have increased ventricular ectopy. Possibly related to CHF, cardiomyopathy, treat with beta-darnell, maintain electrolytes within WNL. Ranexa might help in this regard. Also treating patient for any sleep apnea problem with nightly BiPAP therapy will also help, will be happy to qualify patient for this condition as an outpatient. Prognosis discussed with the patient. - Time Time with patient: Greater than 35 minutes - MUGA scan report discussed. Patient will not qualify for LifeVest. Patient to report any sustained palpitations, syncope, near syncope. Have recommended cardiac event monitoring as an outpatient. CODE STATUS was discussed, patient remains full code. Surrogate decision-maker unchanged. Multiple medical problems were addressed. More than 50% of the time spent coordinating care, discussing management plans with involved caregivers. Management plans discussed with involved personnels. Medical decision making was of moderate to high complexity, patient's has multiple comorbidities. Medications reviewed and adjusted accordingly: Yes
[2017-12-29] MEDS: HYDRALAZINE HCL 50 MG TABLET PO SCH (05:40)
[2017-12-29 06:46] LABS: ANION GAP 12 (5-19); BLOOD UREA NITROGEN 35 mg/dL (7-20); CALCIUM 8.7 mg/dL (8.4-10.2); CARBON DIOXIDE 24 mmol/L (22-30); CHLORIDE 105 mmol/L (98-107); GLUCOSE 74 mg/dL (75-110)
[2017-12-29] MEDS: ASPIRIN 81 MG TABLET, ENT COATED PO SCH (07:52)
[2017-12-29] MEDS: ATORVASTATIN CALCIUM 40 MG TABLET PO SCH (07:52)
[2017-12-29] MEDS: HUM INSULIN NPH/REG INSULIN HM 100 UNIT/1 ML 3 ML SUBCUT SCH (07:52)
[2017-12-29] MEDS: CETIRIZINE 10 MG TABLET PO SCH (07:52)
[2017-12-29] MEDS: DULOXETINE HCL 30 MG CAPSULE.DR PO SCH (07:52)
[2017-12-29] MEDS: FLUTICASONE NASAL SPRAY 50 MCG/SPRY 120 SPRAY/16 GM NASL SCH (07:53)
--- NOTE | 2017-12-29 08:03 | PDOC DISCHARGE SUMMARY ---
General - Admit/Disc Date/PCP Admission Date/Primary Care Provider: 12/25/17 15:07 ZAHRAA WARREN MD Discharge Date: 12/29/17 - Discharge Diagnosis (1) Acute on chronic diastolic congestive heart failure Is this a current diagnosis for this admission?: Yes Summary: ilan ej66. Stop entresto. 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 Is this a current diagnosis for this admission?: Yes (5) Atherosclerotic heart disease of [place] coronary artery without angina pectoris Is this a current diagnosis for this admission?: Yes (6) Morbid (severe) obesity due to excess calories Is this a current diagnosis for this admission?: Yes - Additional Information Resuscitation Status: Full Code Discharge Diet: Cardiac, Diabetic Discharge Activity: Activity As Tolerated, Balance Activity w/Rest, Weigh Daily Prescriptions: Furosemide [Lasix 40 mg Tablet] 40 mg PO BID #180 Furosemide [Lasix] 40 mg PO BID #180 tablet Hydralazine HCl [Apresoline 50 mg Tablet] 50 mg PO Q8 #270 tablet Isosorbide Mononitrate [Imdur 30 mg Tablet.er] 60 mg PO DAILY #90 tab.er.24h Lisinopril [Zestril] 40 mg PO DAILY #90 tablet Ranolazine [Ranexa 500 mg Tab.sr] 500 mg PO Q12 11 Days #60 tab.sr.12h Home Medications: Amlodipine Besylate [Norvasc 10 mg Tablet] 10 mg PO QPM 12/25/17 Aspirin [Adult Low Dose Aspirin EC] 81 mg PO QAM 12/25/17 Atorvastatin Calcium [Lipitor 40 mg Tablet] 40 mg PO QAM 12/25/17 Cetirizine HCl [Zyrtec 10 mg Tablet] 10 mg PO QAM 12/25/17 Cholecalciferol (Vitamin D3) [Vitamin D3 1000 Unit Tablet] 1,000 unit PO QPM 11/06 Clopidogrel Bisulfate [Plavix 75 mg Tablet] 75 mg PO QPM 12/25/17 Duloxetine HCl [Cymbalta] 30 mg PO QAM 12/25/17 Famotidine [Pepcid 20 mg Tablet] 20 mg PO QPM 12/25/17 Fluticasone Propionate [Flonase Nasal [place] 50 Mcg/[place] 16 gm] 2 spray NASL QAM 12/25/17 Hum Insulin NPH/Reg Insulin Hm [Novolin 70-30 100 Unit/ml Vial] 100 units SQ BID 12/25/17 Labetalol HCl [Trandate] 300 mg PO BID 12/25/17 Ranitidine HCl [Zantac] 300 mg PO QAM 12/25/17 Furosemide [Lasix 40 mg Tablet] 40 mg PO BID #180 12/29/17 Furosemide [Lasix] 40 mg PO BID #180 tablet 12/29/17 Hydralazine HCl [Apresoline 50 mg Tablet] 50 mg PO Q8 #270 tablet 12/29/17 Isosorbide Mononitrate [Imdur 30 mg Tablet.er] 60 mg PO DAILY #90 tab.er.24h 03/08 Lisinopril [Zestril] 40 mg PO DAILY #90 tablet 12/29/17 Ranolazine [Ranexa 500 mg Tab.sr] 500 mg PO Q12 11 Days #60 tab.sr.12h 12/29/17 History of Present Illness History of Present Illness: SHANTELLE CURTIS is a 77 year old male with 2007 cabg chronic diastolic failure 1w progressive uribe & pnd. Hospital Course Hospital Course: He diuresed 23#. Echo showed moderate mr dd2 and Rvp65. MUGA ej65. NSVT but did not qualify for life vest. BP meds were increased. Physical Exam Vital Signs: Temp Pulse Resp BP Pulse Ox 97.9 F 66 19 148/70 H 92 12/29/17 04:02 12/29/17 04:02 12/29/17 04:02 12/29/17 04:02 12/29/17 04:02 Intake & Output 12/27/17 12/28/17 12/29/17 07:59 07:59 07:59 Intake Total 1510 1949 2416 Output Total 2100 1650 2825 Balance -590 299 -409 Weight 291 lb 7.218 oz 313 lb 11.485 oz 321 lb 3.416 oz General appearance: PRESENT: no acute distress Respiratory exam: PRESENT: clear to auscultation monserrat Cardiovascular exam: ABSENT: diastolic murmur, irregular rhythm, systolic murmur GI/Abdominal exam: ABSENT: mass, organolmegaly, tenderness Extremities exam: PRESENT: pedal edema - trace Neurological exam: PRESENT: oriented to situation Psychiatric exam: PRESENT: appropriate affect Results Laboratory Results: 12/29/17 05:04 Labs- Last Values WBC 9.2 10^3/uL (4.0-10.5) 12/25/17 11:10 RBC 4.32 10^6/uL (4.35-5.55) L 12/25/17 11:10 Hgb 13.2 g/dL (13.5-17.0) L 12/25/17 11:10 Hct 39.5 % (37.9-51.0) 12/25/17 11:10 MCV 91 fl (80-97) 12/25/17 11:10 MCH 30.6 pg (27.0-33.4) 12/25/17 11:10 MCHC 33.5 g/dL (32.0-36.0) 12/25/17 11:10 RDW 14.5 % (11.5-14.0) H 12/25/17 11:10 Plt Count 177 10^3/uL (150-450) 12/25/17 11:10 Seg Neutrophils % 75.8 % (42-78) 12/25/17 11:10 Lymphocytes % 10.3 % (13-45) L 12/25/17 11:10 Monocytes % 9.6 % (3-13) 12/25/17 11:10 Eosinophils % 3.0 % (0-6) 12/25/17 11:10 Basophils % 1.3 % (0-2) 12/25/17 11:10 Absolute Neutrophils 7.0 10^3/uL (1.7-8.2) 12/25/17 11:10 Absolute Lymphocytes 0.9 10^3/uL (0.5-4.7) 12/25/17 11:10 Absolute Monocytes 0.9 10^3/uL (0.1-1.4) 12/25/17 11:10 Absolute Eosinophils 0.3 10^3/uL (0.0-0.6) 12/25/17 11:10 Absolute Basophils 0.1 10^3/uL (0.0-0.2) 12/25/17 11:10 Sodium 141.0 mmol/L (137-145) 12/29/17 05:04 Potassium 4.0 mmol/L (3.6-5.0) 12/29/17 05:04 Chloride 105 mmol/L (98-107) 12/29/17 05:04 Carbon Dioxide 24 mmol/L (22-30) 12/29/17 05:04 Anion Gap 12 (5-19) 12/29/17 05:04 BUN 35 mg/dL (7-20) H 12/29/17 05:04 Creatinine 1.65 mg/dL (0.52-1.25) H 12/29/17 05:04 Est GFR ( Amer) 49 (>60) L 12/29/17 05:04 Est GFR (Non-Af Amer) 41 (>60) L 12/29/17 05:04 Glucose 74 mg/dL (75-110) L 12/29/17 05:04 POC Glucose 90 mg/dL (70-110) 12/29/17 05:43 Calcium 8.7 mg/dL (8.4-10.2) 12/29/17 05:04 Magnesium 2.2 mg/dL (1.6-2.3) 12/28/17 05:23 Total Bilirubin 0.6 mg/dL (0.2-1.3) 12/25/17 11:10 Direct Bilirubin 0.3 mg/dL (0.0-0.4) 12/25/17 11:10 Neonat Total Bilirubin Not Reportable 12/25/17 11:10 Neonat Direct Bilirubin Not Reportable 12/25/17 11:10 Neonat Indirect Bili Not Reportable 12/25/17 11:10 AST 20 U/L (17-59) 12/25/17 11:10 ALT 33 U/L (21-72) 12/25/17 11:10 Alkaline Phosphatase 139 U/L (38-126) H 12/25/17 11:10 Creatine Kinase 93 U/L (55-170) 12/25/17 11:10 CK-MB (CK-2) 2.48 ng/mL (<4.55) 12/25/17 11:10 Troponin I 0.031 ng/mL 12/25/17 16:22 NT-Pro-B Natriuret Pep 2590 pg/mL (<450) H 12/25/17 11:10 Total Protein 6.0 g/dL (6.3-8.2) L 12/25/17 11:10 Albumin 3.3 g/dL (3.5-5.0) L 12/25/17 11:10 Impressions: Chest X-Ray 12/25/17 00:00 IMPRESSION: Patchy bilateral airspace densities as noted above which could represent pulmonary edema or pneumonic infiltrates. I cannot exclude a tiny right pleural effusion. Other findings as noted above MUGA 12/28/17 10:00 IMPRESSION: NORMAL CARDIAC MUGA STUDY. Normal left ventricular ejection fraction at 66%. Qualifiers - * PATIENT BEING DISCHARGED WITH ANY OF THE FOLLOWING DIAGNOSIS: Heart Failure HF Pt being discharged on ACEI for LVEF less than 40%?: Yes HF Pt being discharged on ARBS for LVEF less than 40%?: No Reason(s) for not prescribing ARBS:: Not indicated HF Pt with Afib discharged with Warfarin?: No Reason(s) for not prescribing Warfarin:: Not indicated HF Pt discharged on evidence-based Beta Nikki:: No Reason(s) for not prescribing evidence-based Beta Nikki:: Not indicated Plan Discharge Plan: home. Ov 5d me. 6d DrM.
[2017-12-29 09:25] VITALS: BP 155/46
[2017-12-29] MEDS ORDERED: LISINOPRIL 10 MG TABLET PO SCH (10:00)
--- NOTE | 2017-12-29 18:50 | PDOC PROGRESS REPORT ---
Subjective Progress Note for:: 12/27/17 Subjective:: Patient seems to be doing better with gradual improvement. Pt is denying any chest arm or neck discomfort. Patient denying any PND, orthopnea. Patient denied any sustained palpitations, dizziness, syncope, near syncope. Patient denying any fever chills. Patient denying any other significant discomfort. Patient is maintaining sinus rhythm. Frequent ventricular ectopy continues but no sustained runs noted. Review of systems: Rest review of systems negative. Medications: Medications have been reviewed. Reason For Visit: CONGESTIVE HEART FAILURE Physical Exam Vital Signs: Temp Pulse Resp BP Pulse Ox 98.2 F 67 18 163/58 H 95 12/27/17 15:50 12/27/17 15:50 12/27/17 15:50 12/27/17 15:50 12/27/17 15:50 Intake & Output 12/26/17 12/27/17 12/28/17 06:59 06:59 06:59 Intake Total 1510 1389 Output Total 1250 2100 550 Balance -1250 -590 839 Weight 152.5 kg 132.2 kg Exam: GENERAL: well-nourished and in no acute distress. Alert and oriented x3 HEAD: Atraumatic, normocephalic. EYES: Pupils equal round and reactive to light, extraocular movements intact, sclera anicteric, conjunctiva are normal. ENT: TMs normal, nares patent, oropharynx clear without exudates. Moist mucous membranes. No oral ulcerations or bleeding gums noted NECK: supple without lymphadenopathy. Trachea is central. No cervical or axillary lymphadenopathy noted. Carotids are 2+, JVD 8-10 cm LUNGS: Respiration seems nonlabored, no significant accessory muscle action noted. Bibasilar fine crackles are noted. No wheezes rales or rhonchi noted. No significant dullness noted on percussion. CHEST: Palpation of the chest wall shows no significant chest wall tenderness. 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 ABDOMEN: Soft, no significant tenderness appreciated, normoactive bowel sounds. No guarding, no rebound. No rigidity noted . No masses appreciated. EXTREMITIES: Pedal pulses are 1-2+, no calf tenderness noted. No clubbing or cyanosis. 1-2+ pedal edema noted NEUROLOGICAL: Focused neurological exam showed no significant neurologic deficit. Normal speech, no focal weakness appreciated. PSYCH: Normal mood, normal affect. Judgment and insight within normal limits. SKIN: No significant ecchymosis, skin is noted to be warm. MUSCULOSKELETAL EXAM: No significant acute joint swelling noted. Results Laboratory Results: 12/27/17 04:37 12/27/17 04:37 Sodium 140.1 Potassium 4.2 Chloride 104 Carbon Dioxide 24 Anion Gap 12 BUN 27 H Creatinine 1.36 H Est GFR ( Amer) > 60 Est GFR (Non-Af Amer) 51 L Glucose 193 H Calcium 9.0 12/25/17 16:22 Troponin I 0.031 EKG Comments: Shows sinus rhythm with frequent PVCs Impressions: Chest X-Ray 12/25/17 00:00 IMPRESSION: Patchy bilateral airspace densities as noted above which could represent pulmonary edema or pneumonic infiltrates. I cannot exclude a tiny right pleural effusion. 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 Qualifiers: Diabetes mellitus termite exterminator insulin use: with termite exterminator use Qualified Code( s): E11.21 - Type 2 diabetes mellitus with diabetic nephropathy; Z79.4 - custodial (current) use of insulin; Z79.4 - custodial (current) use of insulin; Z79.4 - exterminator (current) use of insulin; Z79.4 - custodial (current) use of insulin Is this a current diagnosis for this admission?: Yes (7) Hypertension Qualifiers: Hypertension type: essential hypertension Qualified Code(s): I10 - Essential (primary) hypertension Is this a current diagnosis for this admission?: Yes (8) Morbid (severe) obesity due to excess calories Is this a current diagnosis for this admission?: Yes (9) Sleep disorder breathing Is this a current diagnosis for this admission?: Yes - Notes Notes: Continue optimization of CHF therapy with beta blockers, continue on Ranexa, continue Bipap, patient was desensitized with daytime use. Prinivil dose has been increased. Recommend lifevest prior to discharge, however will order a MUGA scan prior to discharge. Congestive heart failure: Most likely related to combined systolic and diastolic dysfunction in view of history of CAD and prior CABG. A 2D echo has been ordered. 2D echo was obtained. This was technically difficult. Preliminary report shows depressed LVEF, quite significant but study quality was poor. At this point recommend diuretic therapy, optimization of beta- darnell, SHAHLA inhibitor therapy. We will also consider digoxin and spironolactone therapy. CAD: Patient without any chest pain. So far cardiac enzymes has been unremarkable. Will review previous cardiac workup. If needed will consider a nuclear stress test as an outpatient. Peripheral vascular disease: Patient gives history of peripheral vascular disease with peripheral bypass. Currently without any signs of tissue ischemia. Hypertension: Blood pressure has been elevated. Have increased hydralazine to 50 mg p.o. every 8. Have also placed patient on Imdur. Diabetes: This is being expertly managed by the computer project manager Dr. Capellan. Morbid obesity: Patient has been advised to lose weight. Sleep disordered breathing: Patient will benefit from weight loss and also evaluation and treatment of sleep apnea if present. Patient was explained that sleep apnea often cause LV systolic as well as diastolic dysfunction and increases risk of myocardial infarction and also progression of CAD. Cardiac dysrhythmia: Patient is noted to have increased ventricular ectopy. Possibly related to CHF, cardiomyopathy, treat with beta-darnell, maintain electrolytes within WNL. Ranexa might help in this regard. Also treating patient for any sleep apnea problem with nightly BiPAP therapy will also help, will be happy to qualify patient for this condition as an outpatient. Prognosis discussed with the patient. - Time Time with patient: Greater than 35 minutes - CODE STATUS was discussed, patient remains full code. Surrogate decision-maker unchanged. Multiple medical problems were addressed. More than 50% of the time spent coordinating care, discussing management plans with involved caregivers. Management plans discussed with involved personnels. Medical decision making was of moderate to high complexity, patient's has multiple comorbidities. Medications reviewed and adjusted accordingly: Yes
--- NOTE | 2017-12-29 18:57 | PDOC PROGRESS REPORT ---
Subjective Progress Note for:: 12/29/17 Subjective:: Feels better this morning ready for discharge. Actually has already been discharged by Dr. Capellan. Patient was seen nevertheless as patient will need close cardiology follow-up. Patient seems to be doing better with gradual improvement. Pt is denying any chest arm or neck discomfort. Patient denying any PND, orthopnea. Patient denied any sustained palpitations, dizziness, syncope, near syncope. Patient denying any fever chills. Patient denying any other significant discomfort. Patient is maintaining sinus rhythm. Ventricular ectopy has significantly decreased as CHF is coming under better control. MUGA scan showed well preserved LVEF. Therefore patient will not qualify for LifeVest. Review of systems: Rest review of systems negative. Medications: Medications have been reviewed. Reason For Visit: CONGESTIVE HEART FAILURE Physical Exam Vital Signs: Temp Pulse Resp BP Pulse Ox 97.6 F 72 18 155/46 H 98 12/29/17 09:21 12/29/17 09:21 12/29/17 09:21 12/29/17 09:21 12/29/17 09:21 Intake & Output 12/28/17 12/29/17 12/30/17 06:59 06:59 06:59 Intake Total 1949 2416 Output Total 1650 2825 Balance 299 -409 Weight 142.3 kg 145.7 kg Exam: GENERAL: well-nourished and in no acute distress. Alert and oriented x3 HEAD: Atraumatic, normocephalic. EYES: Pupils equal round and reactive to light, extraocular movements intact, sclera anicteric, conjunctiva are normal. ENT: TMs normal, nares patent, oropharynx clear without exudates. Moist mucous membranes. No oral ulcerations or bleeding gums noted NECK: supple without lymphadenopathy. Trachea is central. No cervical or axillary lymphadenopathy noted. Carotids are 2+, JVD WNL LUNGS: Respiration seems nonlabored, no significant accessory muscle action noted. Few bibasilar fine crackles noted. No wheezes rales or rhonchi noted. No significant dullness noted on percussion. CHEST: Palpation of the chest wall shows no significant chest wall tenderness. 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 ABDOMEN: Soft, no significant tenderness appreciated, normoactive bowel sounds. No guarding, no rebound. No rigidity noted . No masses appreciated. EXTREMITIES: Pedal pulses are 1-2+, no calf tenderness noted. No clubbing or cyanosis. 1+ pedal edema noted NEUROLOGICAL: Focused neurological exam showed no significant neurologic deficit. Normal speech, no focal weakness appreciated. PSYCH: Normal mood, normal affect. Judgment and insight within normal limits. SKIN: No significant ecchymosis, skin is noted to be warm. MUSCULOSKELETAL EXAM: No significant acute joint swelling noted. Results Laboratory Results: 12/29/17 05:04 12/29/17 05:04 Sodium 141.0 Potassium 4.0 Chloride 105 Carbon Dioxide 24 Anion Gap 12 BUN 35 H Creatinine 1.65 H Est GFR ( Amer) 49 L Est GFR (Non-Af Amer) 41 L Glucose 74 L Calcium 8.7 12/25/17 16:22 Troponin I 0.031 EKG Comments: Sinus rhythm, no significant cardiac dysrhythmia noted. Impressions: Chest X-Ray 12/25/17 00:00 IMPRESSION: Patchy bilateral airspace densities as noted above which could represent pulmonary edema or pneumonic infiltrates. I cannot exclude a tiny right pleural effusion. Other findings as noted above MUGA 12/28/17 10:00 IMPRESSION: NORMAL CARDIAC MUGA STUDY. Normal left ventricular ejection fraction at 66%. 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 Related to acute on chronic diastolic dysfunction. Most likely precipitated by volume overload. MUGA scan again reviewed. Peripheral vascular disease: Patient gives history of peripheral vascular disease with peripheral bypass. Currently without any signs of tissue ischemia. Hypertension: Blood pressure now reasonably well controlled. Blood pressure goal discussed. Diabetes: This is being expertly managed by the remnant sorter Dr. Capellan. Morbid obesity: Patient has been advised to lose weight. Sleep disordered breathing: Patient will benefit from weight loss and also evaluation and treatment of sleep apnea if present. Patient was explained that sleep apnea often cause LV systolic as well as diastolic dysfunction and increases risk of myocardial infarction and also progression of CAD. Patient claims that he enjoyed sleeping with the BiPAP and would follow-up with me for sleep study and all that as needed. Cardiac dysrhythmia: Patient is noted to have increased ventricular ectopy. This has significantly improved. Patient will need just beta-blockers. Also treating patient for any sleep apnea problem with nightly BiPAP therapy will also help, will be happy to qualify patient for this condition as an outpatient. Prognosis discussed with the patient. - Time Time with patient: Greater than 35 minutes - CODE STATUS was discussed, patient remains full code. Surrogate decision-maker unchanged. Multiple medical problems were addressed. More than 50% of the time spent coordinating care, discussing management plans with involved caregivers. Management plans discussed with involved personnels. Medical decision making was of moderate to high complexity, patient's has multiple comorbidities. Medications reviewed and adjusted accordingly: Yes
== END 2017-12-29 10:02 | disposition home or self-care (01) | DRG 292 ==
LOC: ER 10:36 → EH 15:07 → 4S 19:25
PROVIDERS: ADMIT Family Medicine; ATTEND Family Medicine
DX: I13.0 Hypertensive heart and chronic kidney disease with heart failure and stage 1 through stage 4 chronic kidney disease, or unspecified chronic kidney disease (principal); Z68.41 Body mass index [BMI] 40.0-44.9, adult; E11.51 Type 2 diabetes mellitus with diabetic peripheral angiopathy without gangrene; E11.21 Type 2 diabetes mellitus with diabetic nephropathy; I25.10 Atherosclerotic heart disease of native coronary artery without angina pectoris; E11.22 Type 2 diabetes mellitus with diabetic chronic kidney disease; I70.212 Atherosclerosis of native arteries of extremities with intermittent claudication, left leg; E66.01 Morbid (severe) obesity due to excess calories; R00.0 Tachycardia, unspecified; G47.30 Sleep apnea, unspecified; N18.9 Chronic kidney disease, unspecified; K21.9 Gastro-esophageal reflux disease without esophagitis; M19.90 Unspecified osteoarthritis, unspecified site; Z95.1 Presence of aortocoronary bypass graft; Z90.49 Acquired absence of other specified parts of digestive tract; Z87.891 Personal history of nicotine dependence; Z82.49 Family history of ischemic heart disease and other diseases of the circulatory system; Z83.3 Family history of diabetes mellitus; Z79.4 Long term (current) use of insulin; Z95.828 Presence of other vascular implants and grafts
CPT/HCPCS: 36415; 71045; 78472; 80048; 80053; 82550; 82553; 82962; 83735; 83880; 84132; 84484; 85025; 93005; 93010; 93306; 94660; 99285; A9560; J0360; J1650; J1815; J1940; J3490; Q9969

== ENCOUNTER 2018-03-26 08:00 | Day surgery (SDC) | payer MEDICARE ==
[~2018-03-26 08:00] MED LIST: KETOROLAC TROMETHAMINE 0.45% 4 DROP/0.4 ML DROPERETTE OD PRN
[2018-03-26] MEDS ORDERED: EPINEPHRINE INJ/PF 1 MG/1 ML AMPULE ONE (08:08)
[2018-03-26] MEDS ORDERED: CHONDR SU A NA/HYALUR INTRAOC KIT (SURGICARE) ONE (08:09)
[2018-03-26] MEDS ORDERED: LIDOCAINE 1%/PHENYLEPHRINE 1.5% 1 ML VIAL ONE (08:09)
[2018-03-26] MEDS: TETRACAINE HCL 0.5% OPH SOLN 4 ML OD PRN ×3 (08:58→09:24)
[2018-03-26] MEDS: TROPICAMIDE 1% OPH SOLN 3 ML OD PRN ×3 (08:58→09:17)
[2018-03-26] MEDS: BESIFLOXACIN HCL 0.6% OPH SUSP 5 ML BOTTLE OD PRN ×3 (08:58→09:56)
[2018-03-26] MEDS: CYCLOPENTOLATE 0.2%/PHENYLEPHRINE 1% OPH SOLN 2 ML OD PRN ×3 (08:58→09:17)
[2018-03-26] MEDS ORDERED: MIDAZOLAM 2 MG/2 ML INJ ONE (09:06)
[2018-03-26] MEDS ORDERED: CHONDR SU A NA/HYALUR SOD 0.5 ML DISP.SYRIN ONE (09:45)
[2018-03-26] MEDS ORDERED: FLUMAZENIL INJ 0.5 MG/5 ML VIAL ONE (10:03)
--- NOTE | 2018-03-27 09:53 | [facility] OPERATIVE REPORT E ---
[facility] Operative Report NAME: SHANTELLE CURTIS AGE: 77Y DATE OF SURGERY: 03/26/2018 ROOM: PREOPERATIVE DIAGNOSIS: CATARACT, RIGHT EYE. POSTOPERATIVE DIAGNOSIS: CATARACT, RIGHT EYE. OPERATION: Cataract extraction with insertion of an IOL of the right eye. SURGEON: JANE GARZON M.D. ANESTHESIA: Topical. PROCEDURE: After obtaining appropriate consent, the patient's right eye was prepped and draped in sterile fashion as well as the surgeon in a sterile manner and cataract surgery was started. First a paracentesis blade was used to make a side-port incision. Viscoelastic was used to inflate the anterior chamber. Next a 2.4 mm incision was made with a 2.4 mm blade, clear corneal temporally. A continuous capsulorrhexis was made using a cystotome and Utrata forceps. Following this hydrodissection was carried out to make the lens fully loose and mobile and it was rotated 90 degrees. Following this, a wlfldg-aci-tvbdxog technique was used to phacoemulsify the lens with a CDE of 8.03. The remaining cortex was removed with irrigation/aspiration. Provisc was instilled into the capsular bag to inflate the bag. A ZCB00, 20.5 diopter lens was placed. The remaining viscoelastic material was removed with irrigation/aspiration. Following this, the incision was found to be watertight. Besivance was instilled into the eye and a protective shield was placed over the eye. The patient returned to the postoperative recovery in stable condition. DICTATING PHYSICIAN: JANE GARZON M.D. [id number] PHY#: [id number] ID: [id number] JOB#: [id number] ACCT: [id number] cc:JANE GARZON M.D. >
--- NOTE | 2018-03-27 09:55 | [facility] DISCHARGE SUMMARY E ---
[facility] Discharge Summary NAME: SHANTELLE CURTIS AGE: 77Y ADMITTED: 03/26/2018 DISCHARGED: This is a 77-year-old male who underwent cataract extraction of the right eye. DIAGNOSIS: Cataract right eye. He underwent surgery because he was having difficulty driving secondary to glare from headlights. He is to be on a regular diet. No bending at the waist, no lifting. He should use his Besivance, Ilevro, and Durezol at 3:00 p.m. and 8:00 p.m., and sleep with a rigid shield. I will see him for his 1-day postoperative tomorrow. DICTATING PHYSICIAN: JANE GARZON M.D. [id number] PHY#: [id number] ID: [id number] JOB#: [id number] ACCT: [id number] cc:JANE GARZON M.D. >
== END 2018-03-26 11:30 | disposition home or self-care (01) ==
LOC: SC 08:00
PROVIDERS: ATTEND Internal Medicine
DX: H25.811 Combined forms of age-related cataract, right eye (principal); H57.03 Miosis; I10 Essential (primary) hypertension; E11.9 Type 2 diabetes mellitus without complications; K21.9 Gastro-esophageal reflux disease without esophagitis; R01.1 Cardiac murmur, unspecified; E66.9 Obesity, unspecified; Z79.899 Other long term (current) drug therapy; Z79.4 Long term (current) use of insulin; Z79.82 Long term (current) use of aspirin; Z79.02 Long term (current) use of antithrombotics/antiplatelets; Z68.41 Body mass index [BMI] 40.0-44.9, adult
CPT/HCPCS: 66984; 82962; J3490 ×4; J2250; A9270; J0171; J2370; 142